=== PATIENT | female | born 1935 | race Caucasian/White ===

== ENCOUNTER 2018-06-06 15:42 | Inpatient (IN) | payer MEDICARE ==
[~2018-06-06 15:42] MED LIST: Gadobenate Dimeglumine 529 MG/1 ML (20ML VIAL) ONE
--- NOTE | 2018-06-06 17:03 | CT ---
CT BRAIN WITHOUT CONTRAST: History: Subarachnoid hemorrhage. Transfer from [facility]. Hemorrhage seen on imaging. Technique: Multiple contiguous axial images were obtained in a CT of the brain without contrast. FINDINGS: There is hyperdensity in some of the sulci in the left frontal region consistent with a small amount of frontal subarachnoid hemorrhage. No interventricular hemorrhage is seen. There are a few scattered hypodensities in the subcortical and periventricular white matter, likely secondary to small vessel ischemic disease. The calvarium and overlying soft tissues are unremarkable. The visualized paranasal sinuses and masto id air cells are well aerated. IMPRESSION: Left frontal subarachnoid hemorrhage. POS: OFF
[2018-06-06] MEDS ORDERED: Ondansetron HCl/PF 4 MG/2 ML Vial IVP PRN (17:49)
[2018-06-06] MEDS ORDERED: Docusate 100 MG CAP PO PRN (17:49)
[2018-06-06] MEDS ORDERED: Milk Of Magnesia 30 ML UDCUP PO PRN (17:49)
[2018-06-06] MEDS ORDERED: Acetaminophen 325 MG TAB PO PRN (17:49)
[2018-06-06] MEDS ORDERED: Mag-Al 1200 mg/1200 mg/30 ML UDCUP PO PRN (17:49)
[2018-06-06] MEDS ORDERED: niCARdipine HCl 25 MG in Sodium Chloride 0.9% 250 ML 240 ML IVPB SCH (18:00)
[2018-06-06] MEDS ORDERED: niCARdipine 20MG In NaCl 20 MG/200 ML BAG ONE (19:16)
--- NOTE | 2018-06-06 20:00 | RAD ---
RADIOGRAPH CERVICAL SPINE 4 VIEWS: 06/06/18 at 7:02 p.m. HISTORY: 83-year-old female with right cervical radiculopathy. COMPARISON: None. FINDINGS: There is reversal of curvature. At C4-5, there is moderate to severe disc space narrowing, end plate sclerosis, and end plate marginal osteophytes, including prominent posterior ones that protrude into the anterior aspect of the spinal canal. All of the rest of the disc spaces are maintained without si gnificant osteophytes. Facet DJD is demonstrated at C2-3 on the lateral view, and to a lesser degree at C7-T1. No prevertebral soft tissue swelling. Odontoid is intact. IMPRESSION: 1. Moderate to severe degenerative disc disease isolated to the C4-5 level. 2. Facet osteoarthrosis at a few levels. JN [] POS: GAURI
--- NOTE | 2018-06-06 20:51 | MRI ---
MAGNETIC RESONANCE ANGIOGRAM MRA HEAD NONCONTRAST: 06/06/18 HISTORY: 83-year-old female with left frontal subarachnoid hemorrhage without trauma. TECHNIQUE: 3D [id number] MRA was performed in multiple axial slabs from craniocervical junction to the jude s of the lateral ventricles. Source images and 3D MIP reconstructions evaluated. FINDINGS: Anterior circulation and posterior circulation major arteries of [place] of [place] are within normal l imits in caliber. Bilateral posterior communicating arteries are present. No aneurysm greater than 3 mm is identified. However, the upper most images do not include the area of small amount of subarachn oid hemorrhage in the upper portion of the left frontal lobe. However, that small amount of subarachnoid hemorrhage is unlikely to be from a ruptured aneurysm. The differential diagnosis for possible causes of convexal subarachnoid hemorrhage is long, but includes RCVS (reversible cerebral vasoconstriction syndrome), cerebral amyloid angiopathy, cortical vein thr ombosis, and vasculitis. IMPRESSION: 1. Normal MRA of the head. 2. See above comments. POS: GA[facility]
--- NOTE | 2018-06-06 21:02 | MRI ---
MRA MAGNETIC RESONANCE ANGIOGRAM OF NECK WITH AND WITHOUT CONTRAST: 06/06/18 HISTORY: 83-year-old female with right facial droop, aphasia, and right upper extremity weakness and hypesthes ia (numbness). TECHNIQUE: 2D [id number] MRA performed through the neck, centered at carotid bifurcations. Next, after IV in jection of 11 mL of Multihance gadolinium based contrast agent, coronal acquisition slab from aortopu lmonic window to skull base. 3D MIP reconstructions. FINDINGS: The brachiocephalic, bilateral subclavian, bilateral common carotid artery, bilateral internal caroti d, and bilateral vertebral arteries, demonstrate no high grade stenosis. Mild atherosclerotic stenosi s at origins of the bilateral internal carotid arteries. No high grade stenosis. IMPRESSION: Negative. POS: GAURI
--- NOTE | 2018-06-06 21:34 | MRI ---
MRI BRAIN WITH AND WITHOUT CONTRAST: DATE: 06/06/18 HISTORY: 83-year-old female with nontraumatic spontaneous left frontal subarachnoid hemorrhage, right upper ex tremity weakness, right facial droop, aphasia, and hypertention. COMPARISON: Brain CT of earlier today at [place]. No prior MRIs of the brain are available. TECHNIQUE: Multiple sequences obtained in axial, sagittal, and coronal planes; pre and post IV injection of gado linium-based contrast agent: 11 mL Multihance. FINDINGS: There is no restricted diffusion to indicate any acute infarction. There is a small amount of subarac hnoid hemorrhage in left upper cerebral sulci, including in the central sulcus and in adjacent upper frontal sulci. The signal characteristics are suggestive of acute hemorrhage, deoxyhemoglobin. There are a few tiny punctate foci of hemosiderin stains demonstrated on the gradient echo sequence in the upper cerebral parenchyma on the left and some tiny punctate ones in the right upper sulci. No such hemosiderin stains are present in the basal ganglia which makes chronic hypertensive encephalopathy l ess likely. There is a tiny old lacunar infarction in the midbrain, at the posterior aspect of the le ft cerebral peduncle. No obstructive hydrocephalus, mass effect, midline shift, or extra-axial fluid collection. Chronic ischemic white matter changes are mild. No abnormal enhancement, mass, mass effec t, midline shift, subdural hematoma or epidural hemorrhage. The differential diagnosis for convexal subarachnoid hemorrhage is long, and includes trauma, RCVS (r eversible cerebral vasoconstriction syndrome), cerebral amyloid angiopathy (in which this case would be mild) and vasculitis. IMPRESSION: 1. Small amount of subarachnoid hemorrhage in left upper cerebral sulci. Of many possible etiolo gies in the differential diagnosis for nontraumatic convexal subarachnoid hemorrhage, this case may r epresent RCVS (reversible cerebral vasoconstriction syndrome). 2. 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 3. Mild chronic ischemic white matter changes. KARLA R POS: GAURI
--- NOTE | 2018-06-06 22:07 | HP ---
ATTENDING PHYSICIAN: Tyler Luu MD HISTORY OF PRESENT ILLNESS: The patient is an 83-year-old female with a past medical history of prior TIAs, type 2 diabetes, hypothyroidism, hypertension who was transferred from [facility] for small left frontal SAH- no history of trauma. The patient reports that on Saturday, she developed some mild headache and some tingling in the right upper extremity. She reports that this was intermittent over the next few days, but this afternoon became significantly worse with development of weakness in the right upper extremity, right facial droop, and slurred speech. She was brought to the [facility], where she was evaluated with noncontrast CT of the head, which was notable for faint scattered subarachnoid hemorrhage in the left frontal region. She was transferred to us for further management. Her repeat CAT scan on arrival appears stable with the prior scan. I am seeing the patient at the bedside. She has had resolution of all prior symptoms. She denies any history of trauma. She denies any anticoagulant or antiplatelet drugs except taking one 81-mg aspirin daily. Of note, systolic blood pressure was significantly elevated during her admission to the [facility] with systolic blood pressure being greater than 200 at that time. She was started on a Cardene drip and her blood pressure is 145/71 in our department on arrival. PAST MEDICAL HISTORY: Multiple prior TIAs, type 2 diabetes, hypertension, and hypothyroidism. PAST SURGICAL HISTORY: Colon resection, hysterectomy, aortic valve repair. SOCIAL HISTORY: The patient does not smoke, drink, or use any drugs. She lives at home alone. ALLERGIES: The patient has no known drug allergies. CURRENT MEDICATIONS: Humalog, levothyroxine 100 mcg 1 tab p.o. daily; amlodipine 5 mg tab, 1 tab p.o. b.i.d.; pantoprazole 40 mg tab, 1 tab p.o. daily ; aspirin 81 mg tab, 1 tab p.o. daily; metoprolol 50 mg tab, 1 tab p.o. daily; metformin 1000 mg tab, 1 tab p.o. b.i.d.; lisinopril 40 mg tab 1 p.o. daily; atorvastatin 80 mg tab, 1 tab p.o. daily; hydralazine 25 mg tab, 1 tab p.o. daily; Toujeo 42 units subcu once daily. REVIEW OF SYSTEMS: Per HPI. PHYSICAL EXAMINATION: VITAL SIGNS: BP 145/71; pulse 67; respirations 18; O2, the patient is 100% on room air; temperature, the patient is 98.2. CONSTITUTIONAL: The patient is sitting in the bed comfortably in no acute distress, awake, alert. GCS 15. HEAD: Normocephalic, atraumatic. EYES: PERRLA. Extraocular movements intact. ENT: Oral mucosa is pink, intact, moist. The patient has normal voice. NECK: Nontender to palpation. Free active range of motion. No meningismus. No nuchal rigidity. CARDIOVASCULAR: Regular rate and rhythm. RESPIRATORY: The patient is breathing comfortably with symmetric chest expansion. MUSCULOSKELETAL: She has free active range of motion of all extremities. No focal motor weakness or reflex asymmetry. NEUROLOGIC: Alert and oriented x4. GCS 15. Normal speech. No facial droop is appreciated. Normal [id number]. ASSESSMENT AND PLAN: This patient has had transient aphasia, right facial droop , and right upper extremity weakness with a small amount of scattered subarachnoid blood in the left frontal region. This bleeding on her CT scan does not fully account for the symptoms. I am recommending further evaluation with MRI of the brain with and without contrast as well as MRA imaging of the head and neck. We will also monitor the patient closely tonight in the ICU with strict blood pressure control with systolic blood pressure goal of less than 150. She is currently on a Cardene drip. We will continue this at this time. Head of bed will be elevated to 30 degrees. We will stop her baby aspirin. I have discussed this plan with Dr. Luu, who is also in agreement. Hospitalist has been consulted for assistance in medical management. Please reach out to Neurosurgery for additional questions or concerns. IRENE
[2018-06-06] MEDS ORDERED: Dextrose 50% Abboject 50 ML SYRINGE IVP PRN (22:44)
[2018-06-06] MEDS ORDERED: Dextrose 5% in Water 1,000 ML IV PRN (22:44)
[2018-06-07] MEDS ORDERED: Dextrose 50% Abboject 50 ML SYRINGE SLOW IVP PRN (03:31)
[2018-06-07] MEDS ORDERED: Dextrose 5% in Water 1,000 ML IV PRN (03:31)
[2018-06-07] MEDS: HumaLOG 300 UNITS/3 ML VIAL SC PRN ×2 (06:12→17:59)
--- NOTE | 2018-06-07 10:12 | CT ---
PRELIMINARY REPORT/[facility]/EMERGENTY AFTER-HOURS PROCEDURE CT Head Without Intravenous Contrast CLINICAL HISTORY: 83 years old, female; Condition or disease; Other: Ich; Patient HX: Follow up ich TECHNIQUE: Axial computed tomography images of the head/brain without intravenous contrast. COMPARISON: CT Brain WO Con 06/06/2018 4:15 PM FINDINGS: Minimal left frontal subarachnoid hemorrhages, unchanged. No new hemorrhage. No mass, mass effect, midline shift or hydrocephalus. No effacement of the ventricles or basal cisterns. Kevin-white matter differentiation is preserved. Atherosclerosis of the intracranial vasculature. No dense MCA sign. Orbits are unremarkable. Paranasal sinuses are clear. Mastoid air cells are clear. No acute fracture. Soft tissues unremarkable. IMPRESSION: 1. Minimal left frontal subarachnoid hemorrhages, unchanged. 2. No new hemorrhage. Thank you for allowing us to participate in the care of your patient. Dictated and Authenticated by: Trevor Kinsey MD 06/07/2018 6:20 AM Central Time ([place] & [place]) FINAL REPORT CT BRAIN WITHOUT CONTRAST: I agree with the preliminary report given by Dr. Kinsey of [facility]. POS: [facility]
[2018-06-07] MEDS ORDERED: Lisinopril 20 MG TAB PO SCH (10:15)
[2018-06-07] MEDS ORDERED: hydrALAZINE 25 MG TAB PO SCH (10:15)
[2018-06-07] MEDS ORDERED: Insulin Glargine 40 UNITS in Pre-Filled Syringe 1 EACH SC SCH (10:15)
[2018-06-07] MEDS ORDERED: Amlodipine 5 MG TAB PO SCH ×2 (10:15→21:00)
[2018-06-07] MEDS ORDERED: metFORMIN 500 MG TAB PO SCH (10:15)
[2018-06-07] MEDS ORDERED: Levothyroxine Sodium 100 MCG TAB PO SCH (10:15)
[2018-06-07] MEDS ORDERED: HumaLOG 300 UNITS/3 ML VIAL SC PRN (10:30)
--- NOTE | 2018-06-07 10:53 | PRG ---
DATE OF SERVICE: 06/07/2018 SUBJECTIVE: The patient was seen and examined, agreed with Carmen Ayoub evaluation on 2017 for full details. The patient is an 83-year-old woman who had a spell with severe hypertension, right hemiparesis, and right hemisensory deficit. The symptoms resolved and the blood pressure was brought under control in the emergency room. She was then doing well until overnight when she had a similar spell, although shorter-lived and shorter in severity. Imaging has included CT and MRI of the brain revealing some very subtle subarachnoid hemorrhage over the convexities. The brain parenchyma itself looks normal and MRA of the head and neck is also dameon l without evidence of aneurysm or hemorrhagic lesion and without stenotic lesion to cause TIA. IMPRESSION AND PLAN: Right-sided spells of uncertain etiology. These may be transient ischemic shlomo cks, although no etiology has been identified. These may be related to an unusual hypertensive syndr ome. These may also be an unusual form of seizure, although this seems less likely. Subarachnoid hemorrhage is minor and is likely a sequelae of these events rather than any type of cau se. No specific treatment or follow up imaging is necessary for the subarachnoid hemorrhage. With regard to the spells, we will need a Neurology consult and I am also recommending echocardiogram to exclude a cardioembolic source. I have no other specific neurosurgical recommendations at this [facility]. I will discuss with the [facility] Physician and transfer care to [facility].
[2018-06-07] MEDS: Lisinopril 20 MG TAB PO SCH (11:46)
--- NOTE | 2018-06-07 14:32 | PDOC.PN ---
- Subjective Encounter Start Date: 06/07/18 Encounter Start Time: 09:20 Pt seen for followup re: hypertensive urgency. Feels better. Has on and off spells of numbness over LUE. - Objective Resuscitation Status: Resuscitation Status FULL:Full Resuscitation Vital Signs & Weight: Vital Signs (12 hours) Temp Pulse Pulse Pulse BP BP BP 06/07/18 11:52 138/70 06/07/18 11:50 63 138/70 06/07/18 11:49 62 138/70 06/07/18 10:46 68 65 132/73 154/64 H 06/07/18 08:00 98.9 F 06/07/18 04:00 98.1 F 64 Weight Weight 163 lb 2.273 oz Most Recent Monitor Data Heart Rate from ECG 64 NIBP 138/70 NIBP BP-Mean 98 Respiration from ECG 16 SpO2 96 I&O: 06/06/18 06/07/18 06/08/18 06:59 06:59 06:59 Intake Total 340 300 Output Total 1100 400 Balance -760 -100 Result Diagrams: 06/08/18 04:05 06/08/18 04:05 Additional Labs: Accuchecks 06/07/18 06/07/18 06/06/18 12:12 06:07 21:38 POC Glucose 285 H 276 H 204 H Phys Exam - Physical Examination Constitutional: NAD HEENT: moist MMs, sclera anicteric, oral pharynx no lesions, 2+ tonsils Neck: no nodes, no JVD, supple, full ROM Respiratory: no wheezing, no rales, no rhonchi, clear to auscultation bilateral Cardiovascular: RRR, no rub S1, S2 Gastrointestinal: soft, non-tender, no distention, positive bowel sounds Neurological: moves all 4 limbs Psychiatric: normal affect, A&O x 3 Dx/Plan (1) Hypertensive urgency Code(s): I16.0 - HYPERTENSIVE URGENCY Status: Acute Comment: Improving, treated with cardene drip. Resuming oral antihypertensives. (2) Subarachnoid bleed Code(s): I60.9 - NONTRAUMATIC SUBARACHNOID HEMORRHAGE, UNSPECIFIED Status: Acute Comment: neurosurgery service does not feel this is the cause of symptoms. Consulting neurology. (3) DM type 2 (diabetes mellitus, type 2) Status: Chronic Qualifiers: Diabetes mellitus chcf insulin use: without chcf use Diabetes mellitus complication status: with unspecified complications Qualified Code(s) : E11.8 - Type 2 diabetes mellitus with unspecified complications Comment: resume home insulin, continue accuchecks and insulin sliding scale. (4) Dyslipidemia Code(s): E78.5 - HYPERLIPIDEMIA, UNSPECIFIED Status: Chronic Comment: continue atorvastatin (5) Hypothyroidism Code(s): E03.9 - HYPOTHYROIDISM, UNSPECIFIED Status: Chronic Qualifiers: Hypothyroidism type: unspecified Qualified Code(s): E03.9 - Hypothyroidism , unspecified Comment: continue synthroid - Plan * . Review of Systems - Review of Systems Constitutional: negative: fever, chills, sweats, weakness, malaise Respiratory: negative: Cough, Shortness of Breath, SOB with Excertion, Pleuritic Pain, Wheezing Cardiovascular: negative: chest pain, palpitations, orthopnea, paroxysmal nocturnal dyspnea, edema, light headedness Gastrointestinal: negative: Nausea, Vomiting, Abdominal Pain, Diarrhea, Constipation, Melena, Hematochezia Skin: negative: Rash, Lesions, Nathan, Bruising Neurological: Numbness. negative: Weakness, Incoordination, Change in Speech, Confusion, Seizures - Medications/Allergies Allergies/Adverse Reactions: Allergies Allergy/AdvReac Type Severity Reaction Status Date / Time No Known Allergies Allergy Verified 09/10/16 20:59 Medications: Current Medications Acetaminophen (Tylenol) 650 mg PO Q6H PRN PRN Reason: Fever > 101 or Headache Al Hydroxide/Mg Hydroxide (Maalox) 30 ml PO QIDPRN PRN PRN Reason: Dyspepsia Amlodipine Besylate (Norvasc) 5 mg PO BID KIANA Atorvastatin Calcium (Lipitor) 80 mg PO HS KIANA Dextrose/Water (Dextrose 50%) 25 gm SLOW IVP PRN PRN PRN Reason: Hypoglycemia Docusate Sodium (Colace) 100 mg PO BIDPRN PRN PRN Reason: Constipation Glucagon (Glucagon) 1 mg IM PRN PRN PRN Reason: Hypoglycemia Hydralazine HCl (Apresoline) 25 mg PO BID KIANA Nicardipine HCl 25 mg/ Sodium (Chloride) 250 mls @ 0 mls/hr IVPB INF KIANA; Protocol Dextrose/Water (D5w) 1,000 mls @ 0 mls/hr IV .Q0M PRN PRN Reason: Hypoglycemia Insulin Glargine 40 units/ (Miscellaneous Medication) 0.4 mls @ 0 mls/hr SC QAM [facility] Insulin Human Lispro (Humalog) 0 units SC .MILD SLIDING SCALE PRN; Protocol PRN Reason: MILD SLIDING SCALE Last Admin: 06/07/18 06:12 Dose: 4 unit Insulin Human Lispro (Humalog) 4 units SC DAILYPRN PRN PRN Reason: HYPERGLYCEMIA Levothyroxine Sodium (Synthroid) 100 mcg PO 0600 [facility] Lisinopril (Zestril) 40 mg PO DAILY [facility] Magnesium Hydroxide (Milk Of Magnesium) 30 ml PO BIDPRN PRN PRN Reason: Constipation Metformin HCl (Glucophage) 1,000 mg PO BID-WM [facility] Metoprolol Succinate (Toprol Xl) 25 mg PO DAILY [facility] Morphine Sulfate (Morphine) 2 mg SLOW IVP Q4H PRN PRN Reason: Pain Ondansetron HCl (Zofran) 4 mg IVP BIDPRN PRN PRN Reason: Nausea/Vomiting Pantoprazole Sodium (Protonix) 40 mg PO HS [facility] Sodium Chloride (Flush - Normal Saline) 10 ml IVF PRN PRN PRN Reason: Saline Flush
[2018-06-08] MEDS: Amlodipine 5 MG TAB PO SCH ×3 (00:17→21:45)
[2018-06-08] MEDS: Atorvastatin Calcium 40 MG TAB PO SCH ×2 (00:18→21:46)
[2018-06-08] MEDS: hydrALAZINE 25 MG TAB PO SCH ×3 (00:19→21:46)
--- NOTE | 2018-06-08 01:51 | CON ---
DATE OF CONSULTATION: 06/07/2018 HISTORY OF PRESENT ILLNESS: Ms. Lucero is a pleasant 83-year-old female, who presented with a left f rontal subarachnoid hemorrhage. She had a TIA symptom this morning face and her right upper extremity that resolved relatively quickly. She is in the ICU for ongoing monitoring and blood pressure control. PAST MEDICAL HISTORY: 1. Remarkable for TIA many years ago. 2. Diabetes. 3. Hypertension. 4. Hypothyroidism. 5. History of partial colon resection. 6. Status post hysterectomy. 7. History of aortic valve repair. SOCIAL HISTORY: She is a nonsmoker and nondrinker. ALLERGIES: She reports no drug allergies. FAMILY HISTORY: Negative for lung disease in early age. REVIEW OF SYSTEMS: Otherwise negative. PHYSICAL EXAMINATION: GENERAL: Very pleasant, cooperative. VITAL SIGNS: Heart rates in the 60s, blood pressure 133/59, respiratory rate is 18, oximetry is 99. HEENT: Pupils are equal. Sclerae are anicteric. She has slight disconjugate gaze. NECK: Supple. She has no lymphadenopathy. LUNGS: Clear. HEART: Regular rhythm. S1 and S2 are normal. She has a soft grade 2/6 systolic murmur. ABDOMEN: Soft and nontender. EXTREMITIES: Without clubbing, cyanosis, or edema. IMPRESSION: 1. Subarachnoid hemorrhage, clinically stable. 2. ? transient ischemic attack secondary to vasospasm ?. She will remain in Critical Care Unit for now for blood pressure control and observation. This is a 70-minute consult, 50% of the time was spent in the unit coordinating care.
[2018-06-08 04:36] LABS: #Basophils 0.1 thou/uL (0.0-0.2); #Eosinphils 0.5 thou/uL (0.0-0.7); #Lymphocytes 2.7 thou/uL (1.20-3.40); #Monocytes 0.9 thou/uL (0.11-0.59); #Neutrophils 3.1 thou/uL (1.40-6.50); %Basophils 1.3 % (0.0-1.0); %Eosinophils 6.4 % (0.0-10.0); %Lymphocytes 37.7 % (21.0-51.0); %Monocytes 11.8 % (0.0-10.0); %Neutrophils 42.8 % (42.0-75.0); Mean Corpuscular HGB CONC 31.9 g/dL (32.0-36.0); Mean Corpuscular Hemoglobin 26.8 pg (27.0-31.0); Mean Platelet Volume 8.3 fL (7.4-10.4); Platelet Count 208 thou/uL (130-400); RBC Distribution Width 14.6 % (11.5-14.5); Red Blood Cell (RBC) Count 4.49 mill/uL (4.20-5.40); White Blood Cell (WBC) Count 7.2 thou/uL (4.8-10.8)
[2018-06-08 05:00] LABS: Anion Gap 9 mmol/L (10-20); BUN (Urea Nitrogen) 15 mg/dL (9.8-20.1); Calc. Creatinine Clearance 60 mL/min (70-130); Calcium 9.2 mg/dL (7.8-10.44); Carbon Dioxide 28 mmol/L (23-31); Chloride 104 mmol/L (98-107); Estimated GFR-MDRD 66; Glucose 73 mg/dL (83-110); Potassium 4.1 mmol/L (3.5-5.1); Sodium 137 mmol/L (136-145)
[2018-06-08] MEDS: Levothyroxine Sodium 100 MCG TAB PO SCH (07:57)
[2018-06-08] MEDS: Lisinopril 20 MG TAB PO SCH (08:21)
[2018-06-08] MEDS: Insulin Glargine 40 UNITS in Pre-Filled Syringe 1 EACH SC SCH (08:23)
[2018-06-08] MEDS ORDERED: INSULIN GLARGINE HUM REC ANLOG 40 UNIT SC SCH (09:00)
--- NOTE | 2018-06-08 10:43 | CON ---
DATE OF CONSULTATION: 06/08/2018 CONSULTING PHYSICIAN: Dr. Luu. IMPRESSION: Transient ischemic attack like symptoms suggestive of either intermittent vasospasm vers us subclinical seizure activity. PLAN: 1. EEG. 2. Observe clinical course. HISTORY OF PRESENT ILLNESS: Ms. Lucero is an 83-year-old woman who reports developing problems in th e middle of last week. She started experiencing episodes of tingling and numbness of the right face and arm that these episodes were usually fairly brief, lasting no more than 10 minutes. The episodes seem to get a bit stronger with transient paralysis. The worst one was yesterday where she had erazo sient aphasia along with the weakness of the right arm. Again, the episodes did not last very long. She does not report any associated headache, although she has had some intermittent headaches in the past. Her CT scan of the brain showed a left frontal convexity subarachnoid hemorrhage. Her MRAs f lexy to reveal any evidence of an aneurysm. The carotids are clear. She has been fairly stable fro m a standpoint of her vital signs. She feels fine today. PAST MEDICAL HISTORY: Type 2 diabetes, hypothyroidism, hypertension, TIA. PAST SURGICAL HISTORY: Colon resection, hysterectomy, aortic valve replacement. ALLERGIES: None. SOCIAL HISTORY: Unremarkable. FAMILY HISTORY: Noncontributory. REVIEW OF SYSTEMS: No complaints of headache, nausea, dizziness, blurred vision, double vision, ches t pain, shortness of breath. PHYSICAL EXAMINATION: GENERAL: She is a well-nourished elderly lady, in no acute distress. VITAL SIGNS: Blood pressure 148/67, pulse 68 in sinus rhythm, respirations 17, saturation is 93%. HEENT: Pupils are equal. Conjunctivae clear. Oropharynx is clear. NECK: Supple. EXTREMITIES: No cyanosis. NEUROLOGIC: She is alert and appropriate. Her speech is fluent and clear. She follows commands albert ropriately. No focal deficits were noted. No abnormal movements were seen. Imaging was reviewed. SUMMARY: This 83-year-old woman with evidence of a small subarachnoid hemorrhage without evidence of an aneurysm. She has been having transient neurologic events suggestive of either vascular insuffic iency or possibly subclinical seizure activity. Given the hemorrhage, she was not a candidate for an y type of antiplatelet or anticoagulant therapy and nimodipine may be of some value. I will follow u p on the EEG and decide whether an anticonvulsant is necessary.
[2018-06-08] MEDS: niMODipine 30 MG CAP PO SCH ×2 (12:39→17:42)
--- NOTE | 2018-06-08 12:58 | PDOC.PN ---
- Subjective Encounter Start Date: 06/08/18 Encounter Start Time: 10:20 Pt seen for followup re; hypertensive urgency. Had episode RUE numbness last night. - Objective Resuscitation Status: Resuscitation Status FULL:Full Resuscitation MAR Reviewed: Yes Vital Signs & Weight: Vital Signs (12 hours) Temp Pulse Pulse Pulse BP BP BP 06/08/18 11:00 98.2 F 06/08/18 09:26 74 83 162/72 H 163/76 H 06/08/18 09:00 96.9 F L 06/08/18 08:23 83 127/58 L 06/08/18 08:22 81 127/58 L 06/08/18 08:21 127/58 L 06/08/18 08:00 06/08/18 04:00 97.8 F Pulse Ox Pulse Ox Pulse Ox 06/08/18 11:00 06/08/18 09:26 99 94 L 06/08/18 09:00 06/08/18 08:23 06/08/18 08:22 06/08/18 08:21 06/08/18 08:00 98 06/08/18 04:00 Weight Weight 172 lb 6.424 oz Most Recent Monitor Data Heart Rate from ECG 83 NIBP 133/66 NIBP BP-Mean 81 Respiration from ECG 20 SpO2 91 I&O: 06/07/18 06/08/18 06/09/18 06:59 06:59 06:59 Intake Total 340 1191.6 650 Output Total 1100 1500 200 Balance -760 -308.4 450 Result Diagrams: 06/08/18 04:05 06/08/18 04:05 Additional Labs: Accuchecks 06/08/18 06/07/18 06/07/18 11:56 20:29 17:57 POC Glucose 232 H 59 L* 154 H 06/07/18 12:12 POC Glucose 285 H EKG Reviewed by me: Yes (Tele: NSR) Phys Exam - Physical Examination Constitutional: NAD HEENT: moist MMs Neck: supple Respiratory: clear to auscultation bilateral Cardiovascular: RRR Gastrointestinal: soft Neurological: non-focal, normal sensation, moves all 4 limbs Psychiatric: normal affect Dx/Plan (1) Hypertensive urgency Code(s): I16.0 - HYPERTENSIVE URGENCY Status: Acute Comment: Improved, off of cardene drip Resuming oral antihypertensives. (2) Subarachnoid bleed Code(s): I60.9 - NONTRAUMATIC SUBARACHNOID HEMORRHAGE, UNSPECIFIED Status: Acute Comment: neurology consult pending re: episodes of numbness. Blood pressures controlled. (3) DM type 2 (diabetes mellitus, type 2) Status: Chronic Qualifiers: Diabetes mellitus residential insulin use: without residential use Diabetes mellitus complication status: with unspecified complications Qualified Code(s) : E11.8 - Type 2 diabetes mellitus with unspecified complications Comment: Episode of hypoglycemia yesterday evening. If recurs, will decrease lantus dose. (4) Dyslipidemia Code(s): E78.5 - HYPERLIPIDEMIA, UNSPECIFIED Status: Chronic Comment: on atorvastatin (5) Hypothyroidism Code(s): E03.9 - HYPOTHYROIDISM, UNSPECIFIED Status: Chronic Qualifiers: Hypothyroidism type: unspecified Qualified Code(s): E03.9 - Hypothyroidism , unspecified Comment: on synthroid - Plan * . Review of Systems - Review of Systems Cardiovascular: negative: chest pain, palpitations, orthopnea, paroxysmal nocturnal dyspnea, edema, light headedness Gastrointestinal: negative: Nausea, Vomiting, Abdominal Pain, Diarrhea, Constipation, Melena, Hematochezia Neurological: Numbness - Medications/Allergies Allergies/Adverse Reactions: Allergies Allergy/AdvReac Type Severity Reaction Status Date / Time No Known Allergies Allergy Verified 09/10/16 20:59 Medications: Current Medications Acetaminophen (Tylenol) 650 mg PO Q6H PRN PRN Reason: Fever > 101 or Headache Al Hydroxide/Mg Hydroxide (Maalox) 30 ml PO QIDPRN PRN PRN Reason: Dyspepsia Amlodipine Besylate (Norvasc) 5 mg PO BID [facility] Last Admin: 06/08/18 08:23 Dose: 5 mg Atorvastatin Calcium (Lipitor) 80 mg PO HS [facility] Last Admin: 06/08/18 00:18 Dose: 80 mg Dextrose/Water (Dextrose 50%) 25 gm SLOW IVP PRN PRN PRN Reason: Hypoglycemia Last Admin: 06/07/18 20:48 Dose: 25 gm Docusate Sodium (Colace) 100 mg PO BIDPRN PRN PRN Reason: Constipation Glucagon (Glucagon) 1 mg IM PRN PRN PRN Reason: Hypoglycemia Hydralazine HCl (Apresoline) 25 mg PO BID [facility] Last Admin: 06/08/18 08:22 Dose: 25 mg Nicardipine HCl 25 mg/ Sodium (Chloride) 250 mls @ 0 mls/hr IVPB INF [facility]; Protocol Dextrose/Water (D5w) 1,000 mls @ 0 mls/hr IV .Q0M PRN PRN Reason: Hypoglycemia Insulin Glargine 40 units/ (Miscellaneous Medication) 0.4 mls @ 0 mls/hr SC QAM [facility] Last Admin: 06/08/18 08:23 Dose: 0.4 mls Insulin Human Lispro (Humalog) 0 units SC .MILD SLIDING SCALE PRN; Protocol PRN Reason: MILD SLIDING SCALE Last Admin: 06/07/18 17:59 Dose: 2 unit Insulin Human Lispro (Humalog) 4 units SC DAILYPRN PRN PRN Reason: HYPERGLYCEMIA Levothyroxine Sodium (Synthroid) 100 mcg PO 0600 [facility] Last Admin: 06/08/18 07:57 Dose: 100 mcg Lisinopril (Zestril) 40 mg PO DAILY [facility] Last Admin: 06/08/18 08:21 Dose: 40 mg Magnesium Hydroxide (Milk Of Magnesium) 30 ml PO BIDPRN PRN PRN Reason: Constipation Metformin HCl (Glucophage) 1,000 mg PO BID-[facility] Metoprolol Succinate (Toprol Xl) 25 mg PO DAILY [facility] Last Admin: 06/08/18 08:23 Dose: 25 mg Morphine Sulfate (Morphine) 2 mg SLOW IVP Q4H PRN PRN Reason: Pain Nimodipine (Nimodipine) 60 mg PO Q6HR [facility] Last Admin: 06/08/18 12:39 Dose: 60 mg Ondansetron HCl (Zofran) 4 mg IVP BIDPRN PRN PRN Reason: Nausea/Vomiting Pantoprazole Sodium (Protonix) 40 mg PO HS [facility] Last Admin: 06/08/18 00:19 Dose: 40 mg Sodium Chloride (Flush - Normal Saline) 10 ml IVF PRN PRN PRN Reason: Saline Flush
[2018-06-08] MEDS: metFORMIN 500 MG TAB PO SCH (17:42)
[2018-06-08] MEDS: HumaLOG 300 UNITS/3 ML VIAL SC PRN (17:44)
--- NOTE | 2018-06-08 18:58 | PRG ---
DATE OF SERVICE: 06/08/2018 SUBJECTIVE: Akila Lucero had 2 more transient ischemic events overnight that were shortlived. OBJECTIVE: VITAL SIGNS: She is afebrile, blood pressure 131/59, heart rate 64. GENERAL: She is talking in complete sentences. She had a nonfocal neuro exam when I saw her this mo rning. LUNGS: Clear. HEART: Regular rhythm. ABDOMEN: Soft and nontender. EXTREMITIES: Without clubbing, cyanosis or edema. LABORATORY DATA: White count 7.2, hemoglobin 12.0, platelets 208,000. Electrolytes are normal. Potassium is 4.1, BUN is 15, creatinine 0.8. IMPRESSION: 1. Subarachnoid hemorrhage. 2. Transient ischemic attacks. PLAN: An EEG has been ordered for tomorrow, although may not help if she is asymptomatic. Continue to follow with the other physicians caring for her. She should remain in the Critical Care Unit in m y opinion.
[2018-06-09] MEDS: niMODipine 30 MG CAP PO SCH ×4 (03:20→17:59)
[2018-06-09] MEDS: Levothyroxine Sodium 100 MCG TAB PO SCH (06:32)
--- NOTE | 2018-06-09 08:28 | CON ---
DATE OF CONSULTATION: 06/06/2018 PRIMARY CARE PHYSICIAN: Dr. Glass. CODE STATUS: FULL CODE. TIME OF EVALUATION: 10:20 p.m. CHIEF COMPLAINT: Right side of the face and right-hand weakness. HISTORY OF PRESENT ILLNESS: This is an 83-year-old female patient with past medical history of TIA i n 2010, diabetes type 2, hypothyroidism, hypertension came to the hospital after having right-sided o f the face and right upper extremity weakness, tingling, also associated with some aphasia. There wa s no clear triggers, no alleviating factors. She reports that the symptoms have been on and off in t he past week and last time. She had the symptoms that were [id number] that improved by it self. REVIEW OF SYSTEMS: Constitutional: No fever or chills or generalized weakness. Respiratory: No co ugh, sputum production, shortness of breath. Cardiovascular: No chest pain, palpitation. Gastroint estinal: No nausea, no vomiting, diarrhea, or abdominal pain. CLINICAL LAB SCIENTIST: Patient has right-sided facial and right upper extremity weakness. No burning on urination. Extremities: No leg swelling. All ot her systems were reviewed and negative except for the findings mentioned above. PAST MEDICAL HISTORY: As mentioned in the HPI. PAST SURGICAL HISTORY: Hysterectomy, valve replacement with artificial valve. PSYCHIATRIC HISTORY: No previous psychiatric history. SOCIAL HISTORY: No alcohol use. No drugs. No smoking history. KNOWN ALLERGIES: No known drug allergies. REPORTED MEDICATIONS: Humalog, levothyroxine, amlodipine, pantoprazole, aspirin, metoprolol, metform in, lisinopril, atorvastatin, hydralazine, Toujeo insulin. PHYSICAL EXAMINATION: VITAL SIGNS: On presentation, blood pressure 142/80 with heart rate 75, respiratory rate was 17, tem perature 98, pain was 0/10, O2 saturation 96 on room air. GENERAL APPEARANCE: The patient is alert and oriented, not in any acute distress. HEENT: Eyes, normal conjunctivae. Moist oral mucosa. Anicteric. NECK: No JVD. RESPIRATORY: Bilateral air entry. No rales, no wheezing. Symmetric expansion. CARDIOVASCULAR: Normal rate, regular rhythm. No murmurs, no gallop. No edema. ABDOMEN: Soft, normal bowel sounds. MUSCULOSKELETAL: Baseline range of motion and strength. No tenderness. SKIN: Warm and intact. No pallor, no rash or redness. Peripheral pulses are present. Capillary re fill seems to be intact. NEUROLOGICAL: Baseline sensory. No evidence of any new focal weakness. All the symptoms have disap peared, not present during the physical examination. PSYCHIATRIC: Patient is in good mood, no anxiety, oriented, optimal judgment. LABORATORY DATA: EKG was reviewed. The patient has normal sinus rhythm, nonspecific ST-T wave abnor malities. Ventricular rate 72, W[place] 176, QRS 90, QT corrected 462. Brain CT, left frontal subarachnoi d hemorrhage. Brain MRI, a small amount of subarachnoid hemorrhage in left upper cerebral sulci of m any possible etiologies and the differential diagnosis for nontraumatic convexal subarachnoid hemorr kong. This case may represent RCVS, reversible cerebral vasoconstriction syndrome, small old lacunar infarction of the left mid brain at the cerebral parenchyma with mild chronic ischemic white matter changes. Brain MRA normal MRA of the head. See above comments. Neck MRI was negative. Labs were r eviewed. Glucose 204. Labs are not present in the paper chart. ASSESSMENT AND PLAN: The patient will be placed in the hospital for the following medical problems: Patient has been placed in ICU due to subarachnoid hemorrhage, we have been consulted for the help w ith comorbidity management, primary team is Neurosurgery. 1. Subarachnoid hemorrhage, Neurosurgery is following this problem, we will follow along with them. 2. Uncontrolled diabetes. Blood sugar 202. We will place the patient on sliding scale for optimal control. 3. Hypothyroidism. Continue hormone replacement. 4. Hypertensive urgency. Patient was placed on Cardene drip by Neuro, blood pressure has been contr olled. 5. Deep venous thrombosis prophylaxis.
[2018-06-09] MEDS: hydrALAZINE 25 MG TAB PO SCH ×2 (09:32→20:04)
[2018-06-09] MEDS: metFORMIN 500 MG TAB PO SCH ×2 (09:32→17:59)
[2018-06-09] MEDS: Lisinopril 20 MG TAB PO SCH (09:32)
[2018-06-09] MEDS: Insulin Glargine 40 UNITS in Pre-Filled Syringe 1 EACH SC SCH (09:33)
[2018-06-09] MEDS: Amlodipine 5 MG TAB PO SCH ×2 (09:33→20:04)
--- NOTE | 2018-06-09 09:57 | PRG ---
DATE OF SERVICE: 06/09/2018 Akila Lucero did well over the last 24 hours. She denies having any transient ischemic symptoms. PHYSICAL EXAMINATION: VITAL SIGNS: Blood pressure 120/52, heart rate in the 60s, respiratory rates in the 20s, oximetry is 98. LUNGS: Her lungs are clear. HEART: Regular rhythm. ABDOMEN: Soft. IMPRESSION: Subarachnoid bleed with ? vasospasm induced transient ischemic attacks. PLAN: Continue supportive care. She is probably stable to move to the Stroke Unit if Neurosurgery a sarah.
[2018-06-09] MEDS: HumaLOG 300 UNITS/3 ML VIAL SC PRN (11:53)
--- NOTE | 2018-06-09 17:37 | PDOC.PN ---
- Subjective Encounter Start Date: 06/09/18 Encounter Start Time: 09:40 Pt seen for followup re: cerebral vasospasm. No further spells. - Objective Resuscitation Status: Resuscitation Status FULL:Full Resuscitation MAR Reviewed: Yes Vital Signs & Weight: Vital Signs (12 hours) Temp Pulse Pulse Pulse BP BP BP 06/09/18 12:00 97.9 F 06/09/18 09:33 66 124/51 L 06/09/18 09:32 66 124/51 L 06/09/18 09:10 70 124/51 L 123/55 L 06/09/18 08:40 57 L 70 128/45 L 106/55 L 06/09/18 08:00 97.8 F Pulse Ox Pulse Ox 06/09/18 12:00 06/09/18 09:33 06/09/18 09:32 06/09/18 09:10 99 06/09/18 08:40 06/09/18 08:00 100 Weight Weight 172 lb 2.896 oz Most Recent Monitor Data Heart Rate from ECG 57 NIBP 158/65 NIBP BP-Mean 113 Respiration from ECG 24 SpO2 97 I&O: 06/08/18 06/09/18 06/10/18 06:59 06:59 06:59 Intake Total 1191.6 1640 780 Output Total 1500 1200 550 Balance -308.4 440 230 Result Diagrams: 06/08/18 04:05 06/08/18 04:05 Additional Labs: Accuchecks 06/09/18 06/09/18 06/08/18 11:40 02:25 22:39 POC Glucose 194 H 71 136 H 06/08/18 17:41 POC Glucose 191 H EKG Reviewed by me: Yes (Tele: NSR) Phys Exam - Physical Examination Constitutional: NAD HEENT: moist MMs Neck: supple Respiratory: clear to auscultation bilateral Cardiovascular: RRR Gastrointestinal: soft Neurological: moves all 4 limbs Psychiatric: normal affect Dx/Plan (1) Cerebral artery vasospasm Code(s): I67.848 - OTHER CEREBROVASCULAR VASOSPASM AND VASOCONSTRICTION Status : Acute Comment: pt started on nimodipine, improving. (2) Subarachnoid bleed Code(s): I60.9 - NONTRAUMATIC SUBARACHNOID HEMORRHAGE, UNSPECIFIED Status: Acute Comment: Blood pressures controlled. (3) DM type 2 (diabetes mellitus, type 2) Status: Chronic Qualifiers: Diabetes mellitus correction insulin use: without terminal operations manager use Diabetes mellitus complication status: with unspecified complications Qualified Code(s) : E11.8 - Type 2 diabetes mellitus with unspecified complications Comment: No further hypoglycemic episodes (4) Dyslipidemia Code(s): E78.5 - HYPERLIPIDEMIA, UNSPECIFIED Status: Chronic Comment: will continue atorvastatin (5) Hypothyroidism Code(s): E03.9 - HYPOTHYROIDISM, UNSPECIFIED Status: Chronic Qualifiers: Hypothyroidism type: unspecified Qualified Code(s): E03.9 - Hypothyroidism , unspecified Comment: will continue synthroid (6) Hypertensive urgency Code(s): I16.0 - HYPERTENSIVE URGENCY Status: Resolved - Plan * . Review of Systems - Review of Systems Cardiovascular: negative: chest pain, palpitations, orthopnea, paroxysmal nocturnal dyspnea, edema, light headedness Neurological: negative: Weakness, Numbness, Incoordination, Change in Speech, Confusion, Seizures - Medications/Allergies Allergies/Adverse Reactions: Allergies Allergy/AdvReac Type Severity Reaction Status Date / Time No Known Allergies Allergy Verified 09/10/16 20:59 Medications: Current Medications Acetaminophen (Tylenol) 650 mg PO Q6H PRN PRN Reason: Fever > 101 or Headache Al Hydroxide/Mg Hydroxide (Maalox) 30 ml PO QIDPRN PRN PRN Reason: Dyspepsia Amlodipine Besylate (Norvasc) 5 mg PO BID [facility] Last Admin: 06/09/18 09:33 Dose: 5 mg Atorvastatin Calcium (Lipitor) 80 mg PO HS [facility] Last Admin: 06/08/18 21:46 Dose: 80 mg Dextrose/Water (Dextrose 50%) 25 gm SLOW IVP PRN PRN PRN Reason: Hypoglycemia Last Admin: 06/07/18 20:48 Dose: 25 gm Docusate Sodium (Colace) 100 mg PO BIDPRN PRN PRN Reason: Constipation Glucagon (Glucagon) 1 mg IM PRN PRN PRN Reason: Hypoglycemia Hydralazine HCl (Apresoline) 25 mg PO BID [facility] Last Admin: 06/09/18 09:32 Dose: 25 mg Nicardipine HCl 25 mg/ Sodium (Chloride) 250 mls @ 0 mls/hr IVPB INF [facility]; Protocol Dextrose/Water (D5w) 1,000 mls @ 0 mls/hr IV .Q0M PRN PRN Reason: Hypoglycemia Insulin Glargine 40 units/ (Miscellaneous Medication) 0.4 mls @ 0 mls/hr SC QAM [facility] Last Admin: 06/09/18 09:33 Dose: 0.4 mls Insulin Human Lispro (Humalog) 0 units SC .MILD SLIDING SCALE PRN; Protocol PRN Reason: MILD SLIDING SCALE Last Admin: 06/09/18 11:53 Dose: 2 unit Insulin Human Lispro (Humalog) 4 units SC DAILYPRN PRN PRN Reason: HYPERGLYCEMIA Levothyroxine Sodium (Synthroid) 100 mcg PO 0600 [facility] Last Admin: 06/09/18 06:32 Dose: 100 mcg Lisinopril (Zestril) 40 mg PO DAILY [facility] Last Admin: 06/09/18 09:32 Dose: 40 mg Magnesium Hydroxide (Milk Of Magnesium) 30 ml PO BIDPRN PRN PRN Reason: Constipation Metformin HCl (Glucophage) 1,000 mg PO BID[facility] Last Admin: 06/09/18 09:32 Dose: 1,000 mg Metoprolol Succinate (Toprol Xl) 25 mg PO DAILY [facility] Last Admin: 06/09/18 09:33 Dose: 25 mg Morphine Sulfate (Morphine) 2 mg SLOW IVP Q4H PRN PRN Reason: Pain Nimodipine (Nimodipine) 60 mg PO Q6HR [facility] Last Admin: 06/09/18 11:52 Dose: 60 mg Ondansetron HCl (Zofran) 4 mg IVP BIDPRN PRN PRN Reason: Nausea/Vomiting Pantoprazole Sodium (Protonix) 40 mg PO HS [facility] Last Admin: 06/08/18 21:46 Dose: 40 mg Sodium Chloride (Flush - Normal Saline) 10 ml IVF PRN PRN PRN Reason: Saline Flush
[2018-06-09] MEDS: Atorvastatin Calcium 40 MG TAB PO SCH (20:04)
[2018-06-10] MEDS: niMODipine 30 MG CAP PO SCH ×5 (00:06→23:18)
[2018-06-10] MEDS: Levothyroxine Sodium 100 MCG TAB PO SCH (05:09)
[2018-06-10 05:52] VITALS: BMI 29.2
[2018-06-10] MEDS: Insulin Glargine 40 UNITS in Pre-Filled Syringe 1 EACH SC SCH (09:18)
[2018-06-10] MEDS: Lisinopril 20 MG TAB PO SCH (09:20)
[2018-06-10] MEDS: metFORMIN 500 MG TAB PO SCH ×2 (09:20→18:18)
[2018-06-10] MEDS: Amlodipine 5 MG TAB PO SCH ×2 (09:21→20:58)
[2018-06-10] MEDS: hydrALAZINE 25 MG TAB PO SCH ×2 (09:21→20:59)
--- NOTE | 2018-06-10 09:26 | EEG ---
Referring Physician: Dilip VARGAS EEG # [id number] TEST TYPE: ROUTINE PORTABLE INPATIENT REPORT: AN EEG USING THE INTERNATIONAL TEN-TWENTY SYSTEM OF ELECTRODE PLACEMENT WAS PERFORMED. The waking background is a medium amplitude 8 hertz alpha frequency. The patient remained awake throughout the study. Photic stimulation was unremarkable. No epileptiform features were seen. IMPRESSION: THIS IS A NORMAL AWAKE EEG. Wool Mixer: KELLEY Patients Transporter: [email or web address] BONILLA
--- NOTE | 2018-06-10 13:40 | PDOC.PN ---
- Subjective Encounter Start Date: 06/10/18 Encounter Start Time: 08:00 Pt seen for followup re: cerebral artery vasospasm. Feels better. No recurrence of spells. No other complaints. - Objective Resuscitation Status: Resuscitation Status FULL:Full Resuscitation MAR Reviewed: Yes Vital Signs & Weight: Vital Signs (12 hours) Temp Pulse Pulse Pulse Resp BP BP 06/10/18 11:37 98.9 F 66 16 06/10/18 09:39 82 80 151/70 H 06/10/18 09:21 76 06/10/18 09:20 171/76 H 06/10/18 08:30 06/10/18 07:49 98.7 F 76 16 06/10/18 04:00 97.3 F L 64 16 BP BP Pulse Ox 06/10/18 11:37 132/61 92 L 06/10/18 09:39 149/70 H 06/10/18 09:21 06/10/18 09:20 06/10/18 08:30 95 06/10/18 07:49 171/76 H 95 06/10/18 04:00 132/62 95 Weight Weight 175 lb 6.4 oz Most Recent Monitor Data Heart Rate from ECG 62 NIBP 130/55 NIBP BP-Mean 104 Respiration from ECG 17 SpO2 97 I&O: 06/09/18 06/10/18 06/11/18 06:59 06:59 06:59 Intake Total 1640 1140 480 Output Total 1200 1250 Balance 440 -110 480 Result Diagrams: 06/08/18 04:05 06/08/18 04:05 Additional Labs: Accuchecks 06/10/18 06/10/18 06/10/18 10:57 06:14 03:28 POC Glucose 142 H 150 H 51 L* 06/09/18 06/09/18 21:10 18:17 POC Glucose 139 H 76 EKG Reviewed by me: Yes (Tele: NSR) Phys Exam - Physical Examination Constitutional: NAD HEENT: moist MMs Neck: supple Respiratory: clear to auscultation bilateral Cardiovascular: RRR Gastrointestinal: soft Neurological: non-focal, normal sensation, moves all 4 limbs Psychiatric: normal affect Dx/Plan (1) Cerebral artery vasospasm Code(s): I67.848 - OTHER CEREBROVASCULAR VASOSPASM AND VASOCONSTRICTION Status : Acute Comment: Improving, pt is on nimodipine (2) Subarachnoid bleed Code(s): I60.9 - NONTRAUMATIC SUBARACHNOID HEMORRHAGE, UNSPECIFIED Status: Acute Comment: Blood pressures controlled now, high earlier today (3) DM type 2 (diabetes mellitus, type 2) Status: Chronic Qualifiers: Diabetes mellitus longterm insulin use: without longterm use Diabetes mellitus complication status: with unspecified complications Qualified Code(s) : E11.8 - Type 2 diabetes mellitus with unspecified complications Comment: Hypoglycemia earlier today, check creatinine level, pt is on hypoglycemia protocol. (4) Dyslipidemia Code(s): E78.5 - HYPERLIPIDEMIA, UNSPECIFIED Status: Chronic Comment: continue atorvastatin (5) Hypothyroidism Code(s): E03.9 - HYPOTHYROIDISM, UNSPECIFIED Status: Chronic Qualifiers: Hypothyroidism type: unspecified Qualified Code(s): E03.9 - Hypothyroidism , unspecified Comment: continue synthroid (6) Hypertensive urgency Code(s): I16.0 - HYPERTENSIVE URGENCY Status: Resolved - Plan * . Review of Systems - Review of Systems Cardiovascular: negative: chest pain, palpitations, orthopnea, paroxysmal nocturnal dyspnea, edema, light headedness Neurological: negative: Weakness, Numbness, Incoordination, Change in Speech, Confusion, Seizures - Medications/Allergies Allergies/Adverse Reactions: Allergies Allergy/AdvReac Type Severity Reaction Status Date / Time No Known Allergies Allergy Verified 09/10/16 20:59 Medications: Current Medications Acetaminophen (Tylenol) 650 mg PO Q6H PRN PRN Reason: Fever > 101 or Headache Al Hydroxide/Mg Hydroxide (Maalox) 30 ml PO QIDPRN PRN PRN Reason: Dyspepsia Amlodipine Besylate (Norvasc) 5 mg PO BID [facility] Last Admin: 06/10/18 09:21 Dose: 5 mg Atorvastatin Calcium (Lipitor) 80 mg PO HS [facility] Last Admin: 06/09/18 20:04 Dose: 80 mg Dextrose/Water (Dextrose 50%) 25 gm SLOW IVP PRN PRN PRN Reason: Hypoglycemia Last Admin: 06/07/18 20:48 Dose: 25 gm Docusate Sodium (Colace) 100 mg PO BIDPRN PRN PRN Reason: Constipation Glucagon (Glucagon) 1 mg IM PRN PRN PRN Reason: Hypoglycemia Hydralazine HCl (Apresoline) 25 mg PO BID [facility] Last Admin: 06/10/18 09:21 Dose: 25 mg Nicardipine HCl 25 mg/ Sodium (Chloride) 250 mls @ 0 mls/hr IVPB INF [facility]; Protocol Dextrose/Water (D5w) 1,000 mls @ 0 mls/hr IV .Q0M PRN PRN Reason: Hypoglycemia Insulin Glargine 40 units/ (Miscellaneous Medication) 0.4 mls @ 0 mls/hr SC QAM [facility] Last Admin: 06/10/18 09:18 Dose: 0.4 mls Insulin Human Lispro (Humalog) 0 units SC .MILD SLIDING SCALE PRN; Protocol PRN Reason: MILD SLIDING SCALE Last Admin: 06/09/18 11:53 Dose: 2 unit Insulin Human Lispro (Humalog) 4 units SC DAILYPRN PRN PRN Reason: HYPERGLYCEMIA Levothyroxine Sodium (Synthroid) 100 mcg PO 0600 [facility] Last Admin: 06/10/18 05:09 Dose: 100 mcg Lisinopril (Zestril) 40 mg PO DAILY [facility] Last Admin: 06/10/18 09:20 Dose: 40 mg Magnesium Hydroxide (Milk Of Magnesium) 30 ml PO BIDPRN PRN PRN Reason: Constipation Metformin HCl (Glucophage) 1,000 mg PO BID[facility] Last Admin: 06/10/18 09:20 Dose: 1,000 mg Metoprolol Succinate (Toprol Xl) 25 mg PO DAILY [facility] Last Admin: 06/10/18 09:20 Dose: 25 mg Morphine Sulfate (Morphine) 2 mg SLOW IVP Q4H PRN PRN Reason: Pain Nimodipine (Nimodipine) 60 mg PO Q6HR [facility] Last Admin: 06/10/18 11:55 Dose: 60 mg Ondansetron HCl (Zofran) 4 mg IVP BIDPRN PRN PRN Reason: Nausea/Vomiting Pantoprazole Sodium (Protonix) 40 mg PO HS [facility] Last Admin: 06/09/18 20:04 Dose: 40 mg Sodium Chloride (Flush - Normal Saline) 10 ml IVF PRN PRN PRN Reason: Saline Flush Last Admin: 06/10/18 09:18 Dose: 10 ml
[2018-06-10 14:32] LABS: #Eosinphils 0.4 thou/uL (0.0-0.7); #Lymphocytes 1.9 thou/uL (1.20-3.40); #Monocytes 0.6 thou/uL (0.11-0.59); #Neutrophils 3.5 thou/uL (1.40-6.50); %Basophils 0.1 % (0.0-1.0); %Lymphocytes 29.8 % (21.0-51.0); %Monocytes 8.9 % (0.0-10.0); %Neutrophils 55.2 % (42.0-75.0); Mean Corpuscular HGB CONC 31.6 g/dL (32.0-36.0); Mean Corpuscular Hemoglobin 26.7 pg (27.0-31.0); Mean Corpuscular Volume 84.4 fL (78.0-98.0); Mean Platelet Volume 7.9 fL (7.4-10.4); Platelet Count 210 thou/uL (130-400); RBC Distribution Width 14.7 % (11.5-14.5); Red Blood Cell (RBC) Count 4.48 mill/uL (4.20-5.40); White Blood Cell (WBC) Count 6.3 thou/uL (4.8-10.8)
[2018-06-10 14:55] LABS: Anion Gap 13 mmol/L (10-20); BUN (Urea Nitrogen) 17 mg/dL (9.8-20.1); Calc. Creatinine Clearance 58 mL/min (70-130); Calcium 9.3 mg/dL (7.8-10.44); Carbon Dioxide 23 mmol/L (23-31); Chloride 103 mmol/L (98-107); Estimated GFR-MDRD 58; Glucose 201 mg/dL (83-110); Potassium 4.3 mmol/L (3.5-5.1); Sodium 135 mmol/L (136-145)
--- NOTE | 2018-06-10 15:41 | PRG ---
DATE OF SERVICE: 06/10/2018 SUBJECTIVE: Akila Lucero is doing well. She has had no more episodes of TIA since the nimodipine h as been started. She says she is feeling great. She wants to go home. OBJECTIVE: VITAL SIGNS: She is afebrile, heart rate is 66, respiratory rate 16, oximetry is 92 on room air, blo od pressure 151/70. LUNGS: Clear. HEART: Regular rhythm. ABDOMEN: Soft. IMPRESSION: ? vasospasm induced transient ischemic attack after subarachnoid bleed. LABORATORY DATA: Stable. Her white count 6.3, hemoglobin 12.0, platelets 210,000. Glucose has fluc tuated between 51-194. PLAN: Continue current care.
[2018-06-10] MEDS: Atorvastatin Calcium 40 MG TAB PO SCH (21:00)
[2018-06-11 04:58] LABS: Anion Gap 11 mmol/L (10-20); BUN (Urea Nitrogen) 17 mg/dL (9.8-20.1); Calc. Creatinine Clearance 65 mL/min (70-130); Calcium 9.7 mg/dL (7.8-10.44); Carbon Dioxide 27 mmol/L (23-31); Chloride 106 mmol/L (98-107); Estimated GFR-MDRD 66; Glucose 64 mg/dL (83-110); Potassium 4.2 mmol/L (3.5-5.1); Sodium 140 mmol/L (136-145)
[2018-06-11 05:01] LABS: #Eosinphils 0.5 thou/uL (0.0-0.7); #Lymphocytes 2.6 thou/uL (1.20-3.40); #Neutrophils 5.1 thou/uL (1.40-6.50); %Basophils 0.5 % (0.0-1.0); %Eosinophils 5.8 % (0.0-10.0); %Lymphocytes 27.9 % (21.0-51.0); %Monocytes 10.7 % (0.0-10.0); %Neutrophils 55.2 % (42.0-75.0); Mean Corpuscular HGB CONC 31.6 g/dL (32.0-36.0); Mean Corpuscular Hemoglobin 26.5 pg (27.0-31.0); Mean Corpuscular Volume 83.9 fL (78.0-98.0); Mean Platelet Volume 7.9 fL (7.4-10.4); Platelet Count 216 thou/uL (130-400); RBC Distribution Width 15.1 % (11.5-14.5); Red Blood Cell (RBC) Count 4.52 mill/uL (4.20-5.40); White Blood Cell (WBC) Count 9.2 thou/uL (4.8-10.8)
[2018-06-11] MEDS: Levothyroxine Sodium 100 MCG TAB PO SCH (05:15)
[2018-06-11] MEDS: niMODipine 30 MG CAP PO SCH ×3 (05:15→18:27)
[2018-06-11] MEDS: Lisinopril 20 MG TAB PO SCH (08:14)
[2018-06-11] MEDS: hydrALAZINE 25 MG TAB PO SCH ×3 (08:16→22:08)
[2018-06-11] MEDS: Amlodipine 5 MG TAB PO SCH (08:16)
[2018-06-11] MEDS: metFORMIN 500 MG TAB PO SCH ×2 (08:17→18:27)
[2018-06-11] MEDS: Insulin Glargine 40 UNITS in Pre-Filled Syringe 1 EACH SC SCH (08:35)
[2018-06-11] MEDS ORDERED: Loperamide HCl 2 MG CAP PO SCH (10:00)
--- NOTE | 2018-06-11 18:23 | PDOC.PN ---
- Subjective Encounter Start Date: 06/11/18 Encounter Start Time: 18:21 Pt seen for followup re: accelerated junctional rhythm. Denies chest pain, shortness of breath, fevers or chills. - Objective Resuscitation Status: Resuscitation Status FULL:Full Resuscitation MAR Reviewed: Yes Vital Signs & Weight: Vital Signs (12 hours) Temp Pulse Pulse Pulse Resp BP BP 06/11/18 15:44 97.7 F 71 16 06/11/18 15:01 88 146/76 H 06/11/18 12:05 97.7 F 68 16 06/11/18 08:44 85 79 148/71 H 06/11/18 08:16 75 06/11/18 08:15 06/11/18 08:14 150/67 H 06/11/18 07:41 97.3 F L 75 16 BP BP Pulse Ox 06/11/18 15:44 119/59 L 93 L 06/11/18 15:01 06/11/18 12:05 114/56 L 96 06/11/18 08:44 134/65 06/11/18 08:16 06/11/18 08:15 94 L 06/11/18 08:14 06/11/18 07:41 150/67 H 94 L Weight Weight 175 lb 6.4 oz Most Recent Monitor Data Heart Rate from ECG 62 NIBP 130/55 NIBP BP-Mean 104 Respiration from ECG 17 SpO2 97 I&O: 06/10/18 06/11/18 06/12/18 06:59 06:59 06:59 Intake Total 1140 1440 980 Output Total 1250 Balance -110 1440 980 Result Diagrams: 06/12/18 04:47 06/12/18 04:47 Additional Labs: Accuchecks 06/11/18 06/11/18 06/11/18 16:27 15:13 11:21 POC Glucose 80 64 L 77 06/11/18 06/10/18 06:07 20:13 POC Glucose 70 70 EKG Reviewed by me: Yes (Tele: run of accelerated junctional rhythm) Phys Exam - Physical Examination Constitutional: NAD HEENT: moist MMs Neck: supple Respiratory: clear to auscultation bilateral Cardiovascular: RRR Gastrointestinal: soft Neurological: moves all 4 limbs Psychiatric: normal affect Dx/Plan (1) Accelerated junctional rhythm Code(s): I49.8 - OTHER SPECIFIED CARDIAC ARRHYTHMIAS Status: Acute Comment: continue to monitor on telemetry. Consult cardiology in AM. Pt is asymptomatic. 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 use Diabetes mellitus complication status: with unspecified complications Qualified Code(s) : E11.8 - Type 2 diabetes mellitus with unspecified complications Comment: continue accuchecks and insulin sliding scale (5) Dyslipidemia Code(s): E78.5 - HYPERLIPIDEMIA, UNSPECIFIED Status: Chronic Comment: on atorvastatin (6) Hypothyroidism Code(s): E03.9 - HYPOTHYROIDISM, UNSPECIFIED Status: Chronic Qualifiers: Hypothyroidism type: unspecified Qualified Code(s): E03.9 - Hypothyroidism , unspecified Comment: continue synthroid (7) Hypertensive urgency Code(s): I16.0 - HYPERTENSIVE URGENCY Status: Resolved - Plan * . Review of Systems - Review of Systems Respiratory: negative: Cough, Shortness of Breath, SOB with Excertion, Pleuritic Pain, Wheezing Cardiovascular: negative: chest pain, palpitations, orthopnea, paroxysmal nocturnal dyspnea, edema, light headedness Neurological: negative: Weakness, Numbness, Incoordination, Change in Speech, Confusion, Seizures - Medications/Allergies Allergies/Adverse Reactions: Allergies Allergy/AdvReac Type Severity Reaction Status Date / Time No Known Allergies Allergy Verified 09/10/16 20:59 Medications: Current Medications Acetaminophen (Tylenol) 650 mg PO Q6H PRN PRN Reason: Fever > 101 or Headache Al Hydroxide/Mg Hydroxide (Maalox) 30 ml PO QIDPRN PRN PRN Reason: Dyspepsia Atorvastatin Calcium (Lipitor) 80 mg PO HS KIANA Last Admin: 06/10/18 21:00 Dose: 80 mg Dextrose/Water (Dextrose 50%) 25 gm SLOW IVP PRN PRN PRN Reason: Hypoglycemia Last Admin: 06/07/18 20:48 Dose: 25 gm Docusate Sodium (Colace) 100 mg PO BIDPRN PRN PRN Reason: Constipation Glucagon (Glucagon) 1 mg IM PRN PRN PRN Reason: Hypoglycemia Hydralazine HCl (Apresoline) 25 mg PO TID [facility] Last Admin: 06/11/18 15:01 Dose: 25 mg Dextrose/Water (D5w) 1,000 mls @ 0 mls/hr IV .Q0M PRN PRN Reason: Hypoglycemia Insulin Glargine 40 units/ (Miscellaneous Medication) 0.4 mls @ 0 mls/hr SC QAM [facility] Last Admin: 06/11/18 08:35 Dose: 0.4 mls Insulin Human Lispro (Humalog) 0 units SC .MILD SLIDING SCALE PRN; Protocol PRN Reason: MILD SLIDING SCALE Last Admin: 06/09/18 11:53 Dose: 2 unit Insulin Human Lispro (Humalog) 4 units SC DAILYPRN PRN PRN Reason: HYPERGLYCEMIA Levothyroxine Sodium (Synthroid) 100 mcg PO 0600 [facility] Last Admin: 06/11/18 05:15 Dose: 100 mcg Lisinopril (Zestril) 40 mg PO DAILY [facility] Last Admin: 06/11/18 08:14 Dose: 40 mg Loperamide HCl (Imodium) 2 mg PO PRN PRN PRN Reason: Diarrhea/Loose Stools Magnesium Hydroxide (Milk Of Magnesium) 30 ml PO BIDPRN PRN PRN Reason: Constipation Metformin HCl (Glucophage) 1,000 mg PO BID-[facility] Last Admin: 06/11/18 08:17 Dose: 1,000 mg Metoprolol Succinate (Toprol Xl) 25 mg PO DAILY [facility] Last Admin: 06/11/18 08:15 Dose: 25 mg Morphine Sulfate (Morphine) 2 mg SLOW IVP Q4H PRN PRN Reason: Pain Nimodipine (Nimodipine) 60 mg PO Q6HR [facility] Last Admin: 06/11/18 12:35 Dose: 60 mg Ondansetron HCl (Zofran) 4 mg IVP BIDPRN PRN PRN Reason: Nausea/Vomiting Pantoprazole Sodium (Protonix) 40 mg PO HS [facility] Last Admin: 06/10/18 21:00 Dose: 40 mg Sodium Chloride (Flush - Normal Saline) 10 ml IVF PRN PRN PRN Reason: Saline Flush Last Admin: 06/11/18 08:14 Dose: 10 ml
[2018-06-11] MEDS: Loperamide HCl 2 MG CAP PO PRN (22:08)
[2018-06-11] MEDS: Atorvastatin Calcium 40 MG TAB PO SCH (22:08)
--- NOTE | 2018-06-11 23:02 | DIS ---
DATE OF ADMISSION: 06/06/2018 DATE OF DISCHARGE: 06/11/2018 PRIMARY CARE PROVIDER: Augusto Glass M.D. DISCHARGE DIAGNOSES: 1. Cerebral artery vasospasm. 2. Subarachnoid bleed. 3. Transient ischemic attack. CONDITION OF PATIENT ON THE DAY OF DISCHARGE: Stable. I assessed Ms. Lucero on the day of discharge . She denies any chest pain or shortness of breath. Vital signs are stable. S1 and S2 are heard, r egular. Lungs are clear to auscultation bilaterally. DISCHARGE MEDICATIONS: Imodium p.r.n.. Aspirin has been discontinued, atorvastatin 80 mg at bedtime , Lantus insulin 40 units daily, levothyroxine 100 mcg daily, lisinopril 40 mg daily, metformin 1000 mg 2 times a day, metoprolol succinate 25 mg daily, pantoprazole 40 mg at bedtime, nimodipine 60 mg e very 6 hours, lispro insulin 4 units subcutaneously daily, hydralazine 25 mg 3 times a day; increased from 25 mg 2 times a day, pantoprazole 40 mg daily. HOSPITAL COURSE: Ms. Lucero is a pleasant 83-year-old lady who was admitted to [facility] on 06/07/2018 for subarachnoid bleed. Please refer to history and physical note by Ms. Malhotra dated 06/06/2018 for further details. She was initially admitted under Neurosurgery service. Hospitalist Service was consulted. Pulmonology Service was also consulted. She was treated with Car dene drip, which was subsequently discontinued. She had spells which resembled TIA. She was seen by Neurology Service. Neurology service felt that this was either seizure activity or coronary artery vasospasm induced TIAs. She was started on amlodipine and the spells resolved. The EEG was normal. She is being discharged home in a stable condition. CONSULTATIONS DURING THIS HOSPITALIZATION: Hospitalist service, Dr. Pope; Pulmonology, Dr. Naqvi and Neurology, Dr. Chance. On the day of discharge, she has white count 9200, hemoglobin 12, platelet count 216,000, normal elec trolytes and normal creatinine. Many thanks for allowing me to participate in your patient's care. Please feel free to contact me wi th any questions or concerns. DISCHARGE DESTINATION: Home. TOTAL AMOUNT OF TIME SPENT COORDINATING THIS DISCHARGE: 33 minutes.
[2018-06-12] MEDS: niMODipine 30 MG CAP PO SCH ×3 (00:18→12:24)
[2018-06-12 05:12] LABS: #Basophils 0.1 thou/uL (0.0-0.2); #Eosinphils 0.3 thou/uL (0.0-0.7); #Lymphocytes 2.2 thou/uL (1.20-3.40); #Neutrophils 6.4 thou/uL (1.40-6.50); %Basophils 0.6 % (0.0-1.0); %Eosinophils 3.3 % (0.0-10.0); %Lymphocytes 21.7 % (21.0-51.0); %Monocytes 9.9 % (0.0-10.0); %Neutrophils 64.5 % (42.0-75.0); Hemoglobin 11.4 g/dL (12.0-16.0); Mean Corpuscular HGB CONC 31.4 g/dL (32.0-36.0); Mean Corpuscular Hemoglobin 26.6 pg (27.0-31.0); Mean Corpuscular Volume 84.6 fL (78.0-98.0); Mean Platelet Volume 8.1 fL (7.4-10.4); Platelet Count 195 thou/uL (130-400); White Blood Cell (WBC) Count 9.9 thou/uL (4.8-10.8)
[2018-06-12 05:18] LABS: Anion Gap 10 mmol/L (10-20); BUN (Urea Nitrogen) 19 mg/dL (9.8-20.1); Calc. Creatinine Clearance 65 mL/min (70-130); Calcium 9.4 mg/dL (7.8-10.44); Carbon Dioxide 28 mmol/L (23-31); Chloride 106 mmol/L (98-107); Estimated GFR-MDRD 65; Potassium 4.1 mmol/L (3.5-5.1); Sodium 140 mmol/L (136-145)
[2018-06-12 05:23] LABS: Glucose 52 mg/dL (83-110)
[2018-06-12] MEDS: Levothyroxine Sodium 100 MCG TAB PO SCH (05:37)
[2018-06-12] MEDS: Insulin Glargine 40 UNITS in Pre-Filled Syringe 1 EACH SC SCH (09:33)
[2018-06-12] MEDS: metFORMIN 500 MG TAB PO SCH (09:34)
[2018-06-12] MEDS: hydrALAZINE 25 MG TAB PO SCH ×2 (09:34→14:34)
[2018-06-12] MEDS: Lisinopril 20 MG TAB PO SCH (09:35)
[2018-06-12 12:00] VITALS: TEMP 99.1
[2018-06-12 14:34] VITALS: BP 125/61
[2018-06-12] MEDS: Loperamide HCl 2 MG CAP PO PRN (14:34)
--- NOTE | 2018-06-12 19:19 | CON ---
DATE OF CONSULTATION: 06/12/2018 REASON FOR CONSULTATION: Brief episode of junctional tachycardia, heart rate 98 yesterday. Patient previously seen by Dr. Rolon. The patient of Dr. Xiang Pope. HISTORY OF PRESENT ILLNESS: Ms. Lucero is a pleasant patient who came to the hospital on this occasi on, transferred apparently from [facility] [employer] in [place]. The patient was transferred here and was seen by Dr. Naqvi 06/07/[address] Chance on 06/08/2018 and patient had a history of TIA i n the past and had a left frontal subarachnoid hemorrhage. Dr. Chance saw the patient and thought she had transient ischemic attack suggestive of intermittent vasospasm versus subclinical seizure activity. As part of the evaluation, the patient has been here on the monitor, she had a brief episode of junctional tachycardia, heart rate of 98. Last night, asy mptomatic. I was consulted about that prior to being released home. The patient does mention was as ymptomatic with that. The patient has improved, asymptomatic, but is ready to be discharged. Wishes to follow up with Dr. Pope. Final diagnosis here was cerebral artery vasospasm, subarachnoid bleed and transient ischemia attack. She has no chest pain or pressure, heaviness or squeezing. PAST MEDICAL HISTORY: She has a history of a valve replacement at [facility] in 2011 according to the patient. Apparently, a bioprosthetic valve placed at that time. She said she had an echocardiogram done earlier this year, told by Dr. Pope "we will need to watch this, but not rosana else needs to be done at the present time." REVIEW OF SYSTEMS: CONSTITUTIONAL: No significant weight gain or loss. VISION: No changes. HEARI NG: No changes. PULMONARY: No cough or wheezing. GASTROINTESTINAL: No nausea, vomiting, diarrhea . SKIN: No rashes. NEUROLOGIC: As outlined above. GASTROINTESTINAL: No nausea, vomiting, diarrh ea. SKIN: No rashes. PHYSICAL EXAMINATION: GENERAL: This is a pleasant elderly woman in no distress. VITAL SIGNS: Blood pressure 125/61, pulse 77 and regular. LUNGS: Clear. CARDIAC: Normal S1, normal S2. There is 2-3/6 harsh systolic murmur at right upper sternal border, radiates to the right carotid. LUNGS: Clear. ABDOMEN: Soft, nontender. EXTREMITIES: No edema. IMAGING DATA: EKG as outlined above. PERTINENT LABORATORY DATA: The echocardiogram was done and interpreted by Dr. Berrios with ejection f raction 50%-55%. It was noted that there is a moderate to severe gradient across aortic valve, altho ugh the gradient itself is not recorded. ASSESSMENT: 1. Asymptomatic episode of junctional rhythm, rate of 98. 2. Previous aortic valve replacement, bioprosthetic valve. 3. Recent neurologic event as outlined above. PLAN: The patient is fine to go ahead and follow up with Dr. Pope as an outpatient.
--- NOTE | 2018-06-13 00:05 | DIS ---
DATE OF ADMISSION: 06/06/2018 DATE OF DISCHARGE: 06/12/2018 PRIMARY CARE PROVIDER: Augusto Glass M.D. DISCHARGE DIAGNOSES: 1. Cerebral artery vasospasm. 2. Subarachnoid bleed. 3. Transient ischemic attack. 4. Accelerated junctional rhythm. CONDITION OF PATIENT ON THE DAY OF DISCHARGE: Stable. I assessed Ms. Lucero on the day of discharge. She denies any complaints. Vital signs are stable. S1 and S2 are heard, regular. Lungs are clear to auscultation bilaterally. Please note that I dictated a discharge summary on 06/11/2018 for the same admission. The patient could not be discharged home that day, because she was found to have accelerated junctional rhythm. She was monitored overnight. She has been seen by Cardiology service prior to discharge and is cleared for discharge. DISCHARGE MEDICATIONS: As dictated on my discharge summary dated 06/11/2018. HOSPITAL COURSE: As dictated on the discharge summary dated 06/11/2018. She was not discharged home that day due to accelerated junctional rhythm. CONSULTATIONS DURING THIS HOSPITALIZATION: Hospitalist service Dr. Pope; Pulmonology, Dr. Naqvi; Neurology, Dr. Chance; and Cardiology, Dr. Bell. On the day of discharge, she has white count of 9900, hemoglobin 11.4, platelet count 195,000, sodium 140, potassium 4.1, creatinine 0.84. Many thanks for allowing me to participate in your patient's care. Please feel free to contact me with any questions or concerns. DISCHARGE DESTINATION: Home. TOTAL AMOUNT OF TIME SPENT COORDINATING THIS DISCHARGE: 26 minutes. IRENE
== END 2018-06-12 15:43 | disposition home or self-care (01) | DRG 65 ==
LOC: ERS 15:42 → CCU 19:29 → 2SE 06-09 22:56
PROVIDERS: ADMIT Neurological Surgery; ATTEND Internal Medicine
DX: I60.9 Nontraumatic subarachnoid hemorrhage, unspecified (principal); G45.9 Transient cerebral ischemic attack, unspecified; I67.848 Other cerebrovascular vasospasm and vasoconstriction; G81.91 Hemiplegia, unspecified affecting right dominant side; E03.9 Hypothyroidism, unspecified; I10 Essential (primary) hypertension; R20.2 Paresthesia of skin; I16.0 Hypertensive urgency; R29.810 Facial weakness; R47.81 Slurred speech; Z79.899 Other long term (current) drug therapy; Z79.4 Long term (current) use of insulin; Z79.82 Long term (current) use of aspirin; Z79.84 Long term (current) use of oral hypoglycemic drugs; E11.65 Type 2 diabetes mellitus with hyperglycemia; Z95.2 Presence of prosthetic heart valve; Z90.49 Acquired absence of other specified parts of digestive tract; I49.8 Other specified cardiac arrhythmias; E78.5 Hyperlipidemia, unspecified
CPT/HCPCS: 36415; 36416; 70450; 70544; 70549; 70553; 72040; 80048; 85025; 87324; 87449; 90471; 90662; 93306; 94002; 95816; 95819; 96365; 96366; A4216; A9579; G0008; G8978-GP-CL; G8979-GP-CJ; G8987-GO-CJ; G8988-GO-CI; G8996-GN-CH; G8997-GN-CH; G8998-GN-CH

== ENCOUNTER 2021-05-03 10:58 | Inpatient (IN) | payer MEDICARE ==
[2021-05-03 11:40] LABS: #Lymphocytes 1.2 thou/uL (1.20-3.40); #Monocytes 1.3 thou/uL (0.11-0.59); %Basophils 0.3 % (0.0-1.0); %Eosinophils 0.1 % (0.0-10.0); %Lymphocytes 9.7 % (21.0-51.0); %Monocytes 10.1 % (0.0-10.0); %Neutrophils 79.8 % (42.0-75.0); Mean Corpuscular HGB CONC 32.1 g/dL (32.0-36.0); Mean Corpuscular Hemoglobin 26.3 pg (27.0-31.0); Mean Platelet Volume 8.8 fL (7.4-10.4); Platelet Count 178 thou/uL (130-400); Red Blood Cell (RBC) Count 3.79 mill/uL (4.20-5.40); White Blood Cell (WBC) Count 12.6 thou/uL (4.8-10.8)
[2021-05-03 11:55] LABS: INR-International Normal Ratio 1.1; PTT 34.1 sec (22.9-36.1); Prothrombin Time 14.4 sec (12.0-14.7)
[2021-05-03 12:02] LABS: ALT (SGPT) 15 U/L (8-55); AST (SGOT) 22 U/L (5-34); Albumin 3.6 g/dL (3.4-4.8); Alkaline Phosphatase 78 U/L (40-110); Anion Gap 15 mmol/L (10-20); BUN (Urea Nitrogen) 18 mg/dL (9.8-20.1); Bilirubin, Total 0.8 mg/dL (0.2-1.2); CK (CPK) 495 U/L (29-168); Calc. Creatinine Clearance 0 mL/min (70-130); Calcium 8.6 mg/dL (7.8-10.44); Carbon Dioxide 23 mmol/L (23-31); Chloride 101 mmol/L (98-107); Globulin 2.8 g/dL (2.4-3.5); Glucose 351 mg/dL (83-110); Potassium 3.6 mmol/L (3.5-5.1); Protein, Total 6.4 g/dL (5.8-8.1); Sodium 135 mmol/L (136-145)
[2021-05-03] MEDS ORDERED: Dextrose 5% in Water 1,000 ML IV PRN (13:09)
[2021-05-03] MEDS ORDERED: Ondansetron PF 4 MG/2 ML Vial IVP PRN (13:09)
[2021-05-03] MEDS ORDERED: Morphine 2 MG/ML VIAL SLOW IVP PRN (13:09)
[2021-05-03] MEDS ORDERED: Dextrose 50% Abboject 50 ML SYRINGE SLOW IVP PRN (13:09)
[2021-05-03] MEDS ORDERED: hydrALAZINE 20 MG/ML VIAL SLOW IVP PRN (13:09)
[2021-05-03] MEDS ORDERED: Cyclobenzaprine 10 MG TAB PO PRN (13:15)
[2021-05-03] MEDS ORDERED: traMADol HCl 50 MG TAB PO PRN (13:15)
[2021-05-03] MEDS ORDERED: Sodium Chloride 0.9% 1,000 ML IV SCH (13:15)
[2021-05-03] MEDS ORDERED: Ondansetron PF 4 MG/2 ML Vial ONE (13:27)
[2021-05-03] MEDS ORDERED: Morphine 4 MG/ML VIAL ONE (13:27)
[2021-05-03] MEDS ORDERED: Acetaminophen 500 MG TAB PO SCH (14:00)
[2021-05-03] MEDS ORDERED: Ibuprofen 200 MG TAB PO PRN (14:03)
[2021-05-03 14:36] LABS: Lactic Acid 1.4 mmol/L (0.5-2.2)
[2021-05-03] MEDS ORDERED: CEFAZOLIN 2 GM in Premix Bag 1 BAG IVPB SCH (15:45)
[2021-05-03 16:43] VITALS: BMI 28.5
[2021-05-03] MEDS ORDERED: Carvedilol 3.125 MG TAB PO SCH (17:00)
[2021-05-03] MEDS: Acetaminophen 500 MG TAB PO SCH ×2 (18:28→23:53)
[2021-05-03] MEDS: HumaLOG 300 UNITS/3 ML VIAL SC PRN (20:47)
[2021-05-03] MEDS: Senokot S 8.6-50 MG TAB PO SCH (20:49)
[2021-05-03] MEDS ORDERED: Famotidine 20 MG TAB PO SCH (21:00)
[2021-05-04] MEDS: Acetaminophen 500 MG TAB PO SCH ×3 (05:36→18:07)
[2021-05-04] MEDS: HumaLOG 300 UNITS/3 ML VIAL SC PRN ×2 (05:36→22:17)
[2021-05-04 06:40] LABS: Hemoglobin 8.1 g/dL (12.0-16.0); Mean Corpuscular HGB CONC 31.8 g/dL (32.0-36.0); Mean Corpuscular Hemoglobin 26.5 pg (27.0-31.0); Mean Corpuscular Volume 83.3 fL (78.0-98.0); Mean Platelet Volume 8.7 fL (7.4-10.4); Platelet Count 146 thou/uL (130-400); RBC Distribution Width 18.1 % (11.5-14.5); Red Blood Cell (RBC) Count 3.06 mill/uL (4.20-5.40); White Blood Cell (WBC) Count 7.2 thou/uL (4.8-10.8)
[2021-05-04 07:05] LABS: Anion Gap 10 mmol/L (10-20); BUN (Urea Nitrogen) 22 mg/dL (9.8-20.1); CK (CPK) 632 U/L (29-168); Calc. Creatinine Clearance 46 mL/min (70-130); Calcium 8.2 mg/dL (7.8-10.44); Carbon Dioxide 25 mmol/L (23-31); Chloride 104 mmol/L (98-107); Glucose 150 mg/dL (83-110); Magnesium 1.8 mg/dL (1.6-2.6); Phosphorus 3.7 mg/dL (2.3-4.7); Potassium 3.6 mmol/L (3.5-5.1); Sodium 135 mmol/L (136-145)
[2021-05-04] MEDS ORDERED: Magnesium 2 GM/50 ML 2 GM in Premix Bag 1 BAG IVPB SCH (07:15)
[2021-05-04] MEDS ORDERED: Carvedilol 3.125 MG TAB PO SCH (08:00)
[2021-05-04] MEDS ORDERED: Potassium Phosphate 30 MMOL in Sodium Chloride 0.9% 250 ML 250 ML IVPB SCH (08:00)
[2021-05-04 08:21] LABS: SARS-CoV-2 PCR by NAA Not Detected (NotDetected)
[2021-05-04] MEDS: Senokot S 8.6-50 MG TAB PO SCH ×2 (08:27→20:21)
[2021-05-04] MEDS: Polyethylene Glycol 3350 17 GM Packet PO SCH (08:27)
[2021-05-04] MEDS: Carvedilol 3.125 MG TAB PO SCH ×2 (08:47→18:08)
[2021-05-04] MEDS ORDERED: Ketamine 50 MG/ML (10ML VIAL) ONE (13:59)
[2021-05-04] MEDS ORDERED: Fentanyl 250 MCG/5 ML VIAL ONE (13:59)
[2021-05-04] MEDS ORDERED: Dexamethasone 20 MG/5 ML VIAL ONE (14:25)
[2021-05-04] MEDS ORDERED: Ondansetron PF 4 MG/2 ML Vial ONE (14:25)
[2021-05-04] MEDS ORDERED: Lidocaine 1% PF 5 ML VIAL ONE (14:25)
[2021-05-04] MEDS ORDERED: PROPOFOL 200 MG/20 ML VIAL ONE (14:25)
[2021-05-04] MEDS ORDERED: PHENYLEPHRINE-NS 100 MCG/ML 10 ML SYRINGE ONE (14:49)
[2021-05-04] MEDS ORDERED: Promethazine HCl 25 MG/ML VIAL IVPB PRN (15:58)
[2021-05-04] MEDS ORDERED: HYDROmorphone 2 MG/ML VIAL SLOW IVP PRN (15:58)
[2021-05-04] MEDS ORDERED: Ketorolac Tromethamine 30 MG/ML VIAL IVP PRN (15:58)
[2021-05-04] MEDS ORDERED: Promethazine HCl 25 MG/ML VIAL IM PRN (15:58)
[2021-05-04] MEDS ORDERED: Ondansetron HCl/PF 4 MG/2 ML Vial IVP PRN (15:58)
[2021-05-04] MEDS ORDERED: Fentanyl 100 MCG/2 ML VIAL ONE (16:07)
[2021-05-04] MEDS ORDERED: HYDROmorphone 0.5 MG/0.5 ML SYRINGE ONE (16:51)
[2021-05-04] MEDS: CEFAZOLIN 2 GM in Premix Bag 1 BAG IVPB SCH (22:16)
[2021-05-05] MEDS: Acetaminophen 500 MG TAB PO SCH ×4 (05:38→17:33)
[2021-05-05] MEDS: CEFAZOLIN 2 GM in Premix Bag 1 BAG IVPB SCH (05:39)
[2021-05-05 06:06] LABS: #Lymphocytes 0.7 thou/uL (1.20-3.40); #Monocytes 0.6 thou/uL (0.11-0.59); #Neutrophils 6.8 thou/uL (1.40-6.50); %Basophils 0.1 % (0.0-1.0); %Eosinophils 0.1 % (0.0-10.0); %Lymphocytes 8.9 % (21.0-51.0); %Monocytes 7.4 % (0.0-10.0); %Neutrophils 83.5 % (42.0-75.0); Hemoglobin 7.2 g/dL (12.0-16.0); Mean Corpuscular HGB CONC 31.6 g/dL (32.0-36.0); Mean Corpuscular Hemoglobin 26.4 pg (27.0-31.0); Mean Corpuscular Volume 83.7 fL (78.0-98.0); Mean Platelet Volume 8.9 fL (7.4-10.4); Platelet Count 129 thou/uL (130-400); Red Blood Cell (RBC) Count 2.71 mill/uL (4.20-5.40); White Blood Cell (WBC) Count 8.1 thou/uL (4.8-10.8)
[2021-05-05 06:31] LABS: Anion Gap 13 mmol/L (10-20); BUN (Urea Nitrogen) 31 mg/dL (9.8-20.1); Calc. Creatinine Clearance 39 mL/min (70-130); Calcium 7.6 mg/dL (7.8-10.44); Carbon Dioxide 22 mmol/L (23-31); Chloride 103 mmol/L (98-107); Glucose 388 mg/dL (83-110); Magnesium 2.3 mg/dL (1.6-2.6); Phosphorus 5.6 mg/dL (2.3-4.7); Potassium 5.1 mmol/L (3.5-5.1); Sodium 133 mmol/L (136-145)
[2021-05-05] MEDS: HumaLOG 300 UNITS/3 ML VIAL SC PRN (06:39)
[2021-05-05] MEDS: Carvedilol 3.125 MG TAB PO SCH ×2 (09:47→16:24)
[2021-05-05] MEDS: metFORMIN 500 MG TAB PO SCH ×2 (09:47→16:24)
[2021-05-05] MEDS: Senokot S 8.6-50 MG TAB PO SCH ×2 (09:48→20:50)
[2021-05-05] MEDS: Polyethylene Glycol 3350 17 GM Packet PO SCH (09:50)
[2021-05-05] MEDS ORDERED: traMADol HCl 50 MG TAB PO SCH (10:15)
[2021-05-05] MEDS: Insulin Regular 300 UNITS/3 ML VIAL SC PRN ×3 (11:57→20:51)
[2021-05-05] MEDS: Ferrous Sulfate 325 MG TAB PO SCH (16:24)
[2021-05-05] MEDS: traMADol HCl 50 MG TAB PO PRN (16:25)
[2021-05-05] MEDS: Ascorbic Acid 500 mg Chewable Tablet PO SCH (20:49)
[2021-05-05] MEDS: traMADol HCl 50 MG TAB PO SCH (20:49)
[2021-05-05] MEDS: Atorvastatin Calcium 40 MG TAB PO SCH (20:50)
[2021-05-06] MEDS: Acetaminophen 500 MG TAB PO SCH ×5 (00:29→23:55)
[2021-05-06] MEDS: Insulin Regular 300 UNITS/3 ML VIAL SC PRN ×4 (05:57→20:19)
[2021-05-06 06:01] LABS: #Eosinphils 0.4 thou/uL (0.0-0.7); #Lymphocytes 1.9 thou/uL (1.20-3.40); #Monocytes 0.8 thou/uL (0.11-0.59); #Neutrophils 5.1 thou/uL (1.40-6.50); %Basophils 0.2 % (0.0-1.0); %Eosinophils 4.8 % (0.0-10.0); %Lymphocytes 23.5 % (21.0-51.0); %Monocytes 9.2 % (0.0-10.0); %Neutrophils 62.3 % (42.0-75.0); Hemoglobin 8.7 g/dL (12.0-16.0); Mean Corpuscular Hemoglobin 27.9 pg (27.0-31.0); Mean Corpuscular Volume 84.3 fL (78.0-98.0); Platelet Count 149 thou/uL (130-400); Red Blood Cell (RBC) Count 3.12 mill/uL (4.20-5.40); White Blood Cell (WBC) Count 8.2 thou/uL (4.8-10.8)
[2021-05-06 06:40] LABS: Anion Gap 12 mmol/L (10-20); BUN (Urea Nitrogen) 32 mg/dL (9.8-20.1); Calc. Creatinine Clearance 44 mL/min (70-130); Calcium 7.6 mg/dL (7.8-10.44); Carbon Dioxide 18 mmol/L (23-31); Chloride 107 mmol/L (98-107); Glucose 312 mg/dL (83-110); Magnesium 2.3 mg/dL (1.6-2.6); Phosphorus 3.3 mg/dL (2.3-4.7); Potassium 4.6 mmol/L (3.5-5.1); Sodium 132 mmol/L (136-145)
[2021-05-06] MEDS: Senokot S 8.6-50 MG TAB PO SCH ×2 (09:00→20:17)
[2021-05-06] MEDS: metFORMIN 500 MG TAB PO SCH ×2 (09:01→17:26)
[2021-05-06] MEDS: Carvedilol 3.125 MG TAB PO SCH ×2 (09:01→17:26)
[2021-05-06] MEDS: Ferrous Sulfate 325 MG TAB PO SCH ×2 (09:01→17:26)
[2021-05-06] MEDS: Ascorbic Acid 500 mg Chewable Tablet PO SCH ×2 (09:02→20:17)
[2021-05-06] MEDS: Polyethylene Glycol 3350 17 GM Packet PO SCH (09:02)
[2021-05-06] MEDS: traMADol HCl 50 MG TAB PO SCH ×2 (09:02→20:18)
[2021-05-06] MEDS: Aspirin 81 mg Enteric Coated Tablet PO SCH (20:17)
[2021-05-06] MEDS: Atorvastatin Calcium 40 MG TAB PO SCH (20:18)
[2021-05-07] MEDS: Acetaminophen 500 MG TAB PO SCH ×4 (05:47→23:38)
[2021-05-07] MEDS: Insulin Regular 300 UNITS/3 ML VIAL SC PRN ×4 (05:48→21:45)
[2021-05-07 07:26] LABS: #Eosinphils 0.6 thou/uL (0.0-0.7); #Lymphocytes 1.8 thou/uL (1.20-3.40); #Monocytes 0.8 thou/uL (0.11-0.59); #Neutrophils 5.3 thou/uL (1.40-6.50); %Basophils 0.6 % (0.0-1.0); %Eosinophils 6.8 % (0.0-10.0); %Lymphocytes 21.4 % (21.0-51.0); %Monocytes 9.3 % (0.0-10.0); %Neutrophils 61.9 % (42.0-75.0); Hemoglobin 9.3 g/dL (12.0-16.0); Mean Corpuscular HGB CONC 32.8 g/dL (32.0-36.0); Mean Corpuscular Hemoglobin 27.6 pg (27.0-31.0); Mean Corpuscular Volume 84.3 fL (78.0-98.0); Mean Platelet Volume 8.6 fL (7.4-10.4); Platelet Count 161 thou/uL (130-400); Red Blood Cell (RBC) Count 3.36 mill/uL (4.20-5.40); White Blood Cell (WBC) Count 8.6 thou/uL (4.8-10.8)
[2021-05-07] MEDS: Senokot S 8.6-50 MG TAB PO SCH ×2 (08:45→21:40)
[2021-05-07] MEDS: Ascorbic Acid 500 mg Chewable Tablet PO SCH ×2 (08:45→21:42)
[2021-05-07] MEDS: Ferrous Sulfate 325 MG TAB PO SCH ×2 (08:46→17:40)
[2021-05-07] MEDS: metFORMIN 500 MG TAB PO SCH ×2 (08:46→17:41)
[2021-05-07] MEDS: Amlodipine 5 MG TAB PO SCH ×2 (08:46→21:40)
[2021-05-07] MEDS: Carvedilol 3.125 MG TAB PO SCH ×2 (08:46→17:40)
[2021-05-07] MEDS: Aspirin 81 mg Enteric Coated Tablet PO SCH ×2 (08:46→21:40)
[2021-05-07] MEDS: Polyethylene Glycol 3350 17 GM Packet PO SCH (08:47)
[2021-05-07] MEDS: traMADol HCl 50 MG TAB PO SCH ×2 (08:47→21:41)
[2021-05-07 10:12] LABS: Calcium 8.3 mg/dL (7.8-10.44); Chloride 100 mmol/L (98-107); Sodium 130 mmol/L (136-145)
[2021-05-07 10:13] LABS: Glucose 400 mg/dL (83-110)
[2021-05-07 10:14] LABS: Anion Gap 9 mmol/L (10-20); Carbon Dioxide 26 mmol/L (23-31)
[2021-05-07 10:16] LABS: Calc. Creatinine Clearance 49 mL/min (70-130)
[2021-05-07 10:17] LABS: BUN (Urea Nitrogen) 23 mg/dL (9.8-20.1)
[2021-05-07 10:18] LABS: Magnesium 1.8 mg/dL (1.6-2.6)
[2021-05-07 10:20] LABS: Phosphorus 1.8 mg/dL (2.3-4.7)
[2021-05-07] MEDS ORDERED: Magnesium 2 GM/50 ML 2 GM in Premix Bag 1 BAG IVPB SCH (10:30)
[2021-05-07] MEDS ORDERED: Sodium Phosphate 30 MMOL in Sodium Chloride 0.9% 250 ML 250 ML IVPB SCH (10:30)
[2021-05-07] MEDS: Atorvastatin Calcium 40 MG TAB PO SCH (21:40)
[2021-05-08] MEDS: Acetaminophen 500 MG TAB PO SCH ×3 (06:48→17:01)
[2021-05-08] MEDS: Insulin Regular 300 UNITS/3 ML VIAL SC PRN ×2 (06:50→12:15)
[2021-05-08 07:41] LABS: Anion Gap 12 mmol/L (10-20); BUN (Urea Nitrogen) 25 mg/dL (9.8-20.1); Calc. Creatinine Clearance 50 mL/min (70-130); Calcium 8.1 mg/dL (7.8-10.44); Carbon Dioxide 23 mmol/L (23-31); Chloride 102 mmol/L (98-107); Glucose 312 mg/dL (83-110); Magnesium 2.1 mg/dL (1.6-2.6); Phosphorus 3.9 mg/dL (2.3-4.7); Potassium 4.4 mmol/L (3.5-5.1); Sodium 133 mmol/L (136-145)
[2021-05-08] MEDS ORDERED: Ferrous Sulfate 325 MG TAB PO SCH (09:00)
[2021-05-08] MEDS: Senokot S 8.6-50 MG TAB PO SCH (09:41)
[2021-05-08] MEDS: metFORMIN 500 MG TAB PO SCH ×2 (09:41→17:00)
[2021-05-08] MEDS: Aspirin 81 mg Enteric Coated Tablet PO SCH (09:41)
[2021-05-08] MEDS: Polyethylene Glycol 3350 17 GM Packet PO SCH (09:41)
[2021-05-08] MEDS: Amlodipine 5 MG TAB PO SCH (09:41)
[2021-05-08] MEDS: Carvedilol 3.125 MG TAB PO SCH ×2 (09:42→17:01)
[2021-05-08] MEDS: Ascorbic Acid 500 mg Chewable Tablet PO SCH (09:43)
[2021-05-08] MEDS: traMADol HCl 50 MG TAB PO SCH (09:44)
[2021-05-08] MEDS: traMADol HCl 50 MG TAB PO PRN (09:45)
[2021-05-08 11:41] VITALS: TEMP 98.3
[2021-05-08 16:33] VITALS: BP 146/67
== END 2021-05-08 17:48 | DRG 481 ==
LOC: ERS 10:58 → ERHOLD 13:09 → SJJU 15:55
PROVIDERS: ADMIT Surgery; ATTEND Surgery
PROC: 0QS606Z Reposition Right Upper Femur with Intramedullary Internal Fixation Device, Open Approach (ICD-10-PCS; principal; 2021-05-04)
PROC: 30233N1 Transfusion of Nonautologous Red Blood Cells into Peripheral Vein, Percutaneous Approach (ICD-10-PCS; 2021-05-05)
DX: S72.21XA Displaced subtrochanteric fracture of right femur, initial encounter for closed fracture (principal); D62 Acute posthemorrhagic anemia; N17.9 Acute kidney failure, unspecified; E87.1 Hypo-osmolality and hyponatremia; I10 Essential (primary) hypertension; E11.9 Type 2 diabetes mellitus without complications; E03.9 Hypothyroidism, unspecified; F43.10 Post-traumatic stress disorder, unspecified; W18.30XA Fall on same level, unspecified, initial encounter; Z20.822 Contact with and (suspected) exposure to COVID-19; E83.39 Other disorders of phosphorus metabolism; Z86.73 Personal history of transient ischemic attack (TIA), and cerebral infarction without residual deficits; Y92.009 Unspecified place in unspecified non-institutional (private) residence as the place of occurrence of the external cause; Z90.710 Acquired absence of both cervix and uterus; Z90.49 Acquired absence of other specified parts of digestive tract; Z95.3 Presence of xenogenic heart valve; Z79.84 Long term (current) use of oral hypoglycemic drugs; Z79.899 Other long term (current) drug therapy
CPT/HCPCS: 36415; 36416; 36430; 71045; 72170; 76000; 80048; 80053; 82550; 83605; 83735; 84100; 85025; 85027; 85610; 85730; 86850; 86900; 86901; 93005; 93306; 96374; 96375; C1713; G0390; J0360; J0690; J1100; J1170; J1815; J2270; J2405; J2704; J3010; J3475; J7050; P9016; U0003; U0005